=== PATIENT | male | born 1945 | race Caucasian/White ===

== ENCOUNTER 2017-10-01 09:00 | Outpatient (RCR) | payer OTHER, SELFPAY ==
--- NOTE | 2017-09-04 08:49 | HP.PTEVAL_ITS ---
Patient's Visit Information ADRIANA GAVIN is a 72 year old M referred to Physical Therapy by Out of Town Doctor with a diagnosis of Left Shoulder Pain. Date of Evaluation: 09/04/17 Physical Therapist: Ashwini Jean-Baptiste - Visit Plan Frequency: 2x /Week Duration: 4 Weeks Plan: Focus on UE and scap s/s - Subjective Subjective: Left shoulder pain about a year- insidious onset- started getting sore and then he noticed the pain on the top of the joint towards the back and the arm started to get stiff. Had surgery on his had 15-20 years ago so the hand doesn't work as well as the right. Patient is right hand dominate. Does not radiate. Agg: moving it overhead, reaching behind his back Eases: Tylenol. Worst: 8/10 Best: 0/10 No increase in LESTER, blurred vision, dizziness. Does have neck pain- very severe sometimes. No x-rays or MRI of the shoulder. Sleep: not disturbed- lays on his right side and puts a pillow under his arm. 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 PMHx: Type 1 DM , neuropathy, appendix, gall bladder surgery, right hip pin, broken right leg, HTN. Meds: lantus, novolog, crestor, fosinopril, loratadine, hydrchlorothiazide , gabapentin, ferrous sulfate. - Objective Posture: FH, RS, Increased kyphosis- guarding of the left UE. Palpation: tender to touch along upper trap to the tip of the acromion. AROM: Flexion: 105 degrees Abd: 90 degrees, IR: leteral edge of the pocket, ER: 30 degrees Elbow flexion: 120 degrees. AAROM: flexion: 170 degrees, Abd: 160 degrees. Strength: Shoulder: neutral- 4+/5 with discomfort. within available range flexion: 4-/5, abduction: 4-/5. Empty can: positive, Impingment: positive - Goals Goal 1:: Patient will be I with HEP and progression Goal Time Frame: 4-6 Weeks Goal 2:: Patient will demo full AROM of the shoulder to ease ADL's. Goal Time Frame: 4-6 Weeks Goal 3:: Patient will maintain proper posture t/o tx session to demo increased scap s/s Goal Time Frame: 4-6 Weeks Goal 4:: Patient will report 2/10 pain for 1 week with all ADL's Goal Time Frame: 4-6 Weeks - Rehabilitation Potential Physical Therapy Diagnosis: Patient presents with hypmobility- he has decreased ROM, strength and muscular endurance leading to decreased participation in ADL' s and poor posture Rehabilitation Potential: Fair - Anticipated Interventions Patient/Client Instruction: Educate patient on: Benefits of Fitness Program For the Purpose of:: To improve performance and independence with ADL's Therapeutic Exercise to Include: Strength training, Endurance training, Body mechanics, Postural training, Passive ROM, Active ROM, Scapular Strength/ Stabilization For the Purpose of:: To improve performance and independence with ADL's TENS: Yes Cryotherapy (ice pack, ice massage): Yes Thermo therapy (hot pack): Yes Ultrasound (thermal/non thermal): Yes For the Purpose of:: To decrease pain Thank you for the opportunity to evaluate your patient. For Medicare and Medicare HMO plans, please review the plan of care and approve it. It will need to be FAXED BACK to us at [phone] for Medicare purposes. Please let me know if there are questions or concerns regarding this plan of care. Physician Signature: Date:
--- NOTE | 2017-09-07 13:49 | HP.PTEVAL2_ITS ---
Patient's Visit Information ADRIANA GAVIN is a 72 year old M referred to Physical Therapy by CASPER WALLACE with a diagnosis of SPINAL STENOSIS. Date of Evaluation: 09/07/17 Physical Therapist: Madeline Honeycutt - Visit Plan Frequency: 2-3x /Week Duration: 4-6 Weeks Plan: AQUATIC THERAPY. POSTURE CORRECTION/STRENGTHENING, INSTRUCTION IN APPROPRIATE BODY MECHANICS AND ACTIVITY MODIFICATIONS. DLS STARTING WITH A NEUTRAL SPINE PROGRESSING ROM TOLERATED. ANITA LE ROM, STRETCHING AND STRENGTHENING. HEP INSTRUCTION. - Subjective Subjective: Diagnosis: REFERRED TO PT FOR AQUATIC THERAPY WITH A DIAGNOSIS OF SPINAL STENOSIS. ALREADY STARTED PT WITH KRANTHI RICKS DPT HERE AT [facility] FOR HIS SHOULDER. 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 Disability: YES - 90% DISABILITY FOR NEUROPATHY, EYE PROBLEMS, TYPE I DIABETES. Present symptoms: LOW BACK PAIN. ANITA LEG AND FOOT NUMBESS WHICH PATIENT RELATES TO NEUROPATHY. NORMAL THIGH SENSATION. Present since: CHRONIC. Pain Scale: WORST 9/10, LEAST 0/10. Currently: 0/10. Commenced as a result of: NO APPARENT REASON. Symptoms at onset: LOW BACK. Worse: WALKING, STANDING - ESPECIALLY IF THERE IS NOTHING TO HOLD ON TO, MOVING HEAVY THINGS, BENDING OVER. THE DAY PROGRESS'S. Better: SITTING, LYING DOWN. MORNING. Disturbed sleep: NO. Previous history/Previous treatment: NO BACK SURGERY, NO SILVIA'S, NO PT, NO CHIRO. SELF TREATMENT ONLY. Coughing/sneezing/ straining: NO. Gait: INDEP GAIT WITHOUT AD BUT DOES SOMETIMES USE A CANE ESPECIALLY IF GOING TO BE ON UNEVEN SURFACES. WB'ING IS TIME AND DISTANCE LIMITED. NO SERIOUS OR RECENT FALLS. HOLDS ON WITH TWO HANDS UP AND DOWN STEPS. PATIENT REPORTS HE CATCHES HIS FEET ON THE FLOOR SOMETIMES AND TRIPS BUT USUALLY DOESN'T FALL. Accidents: NO. Unexplained weight loss: NO. Imaging: RECENT LUMBAR X-RAYS AT [facility] - SPINAL STENOSIS. PMH: RIGHT HIP ORIF 1979, RIGHT LEG ORIF, RUPTURED APPENDIX WITH COMPLICATIONS 2011, GALLBLADDER REMOVAL 2014. - Objective Objective: Sitting Posture: POOR. Standing Posture: POOR. INCREASED. Lordosis: REDUCED. Lateral shift: NO. Relevant shift: N/A. Active Correction of posture: NE. Other Observations: INDEP GAIT INTO PT WITHOUT AD WITH DECREASED ENDURANCE, MILD SOB AND STOPPING AFTER APPROXIMATELY 150 TO TAKE A BREIF REST. DYNAMIC BALANCE IS FAIR MINUS. STATIC BALANCE IS ALSO FAIR MINUS. INDEP TRANSFER SIT TO STAND WITHOUT UE ASSIST BUT IT IS DIFFICULT AND TAKES MORE THAN ONE Attempt. UNABLE TO INDEP SLS ON EITHER LEG WITHOUT UE ASSIST. RIGHT LE WEAKER THAN LEFT. LESS GIRTH LEFT CALF THAN RIGHT. Motor deficit: LLE 5/5. Sensory deficit: DECREASED ANITA LEGS. FEET NT. ANITA THIGHS APPEAR INTACT TO LIGHT TOUCH. ROM deficit: TIGHT ANITA HS'S, HIP FLEXORS AND GASTROC SOLEUS COMPLEX'S. Dural Signs: NEGATIVE ANITA LE'S. Lumbar mvmt loss: flex - mod to jen. ext - jen. R SG - jen. L SG - mod. Core strength: POOR. Palpation: NO ACUTE PALPABLE TENDERNESS IN THORACIC OR LUMBAR SPINE. OTHER: PATIENT IS A HIGH FALL RISK. - Goals Goal 1:: DECREASE C/O LBP Goal Time Frame: 4-6 Weeks Goal 2:: INDEP AND SAFE GAIT ON ALL SURFACES WITH LEAST ASSISTIVE DEVICE. Goal Time Frame: 4-6 Weeks Goal 3:: IMPROVE BENDING, STANDING, WALKING AND ADL FUNCTION Goal Time Frame: 4-6 Weeks Goal 4:: INSTRUCT IN PROPHYLAXIS/INDEP WITH WATER EX PROGRAM. Goal Time Frame: 4-6 Weeks - Rehabilitation Potential Rehabilitation Potential: Fair - Anticipated Interventions Patient/Client Instruction: Educate patient on: Condition, Plan of Care, Risk Factors, Benefits of Fitness Program For the Purpose of:: To improve self management Therapeutic Exercise to Include: Strength training, Endurance training, Balance training, Body mechanics, Postural training, Flexibilty training, Gait and locomotor training, In an aquatic setting, Active ROM, Dynamic Lumbar Stabilization For the Purpose of:: To decrease pain, To improve muscle performance and motor function, To improve ability of physical actions for home/community/work/leisure , To improve gait and locomotor functions, To increase flexibility/ROM Thank you for the opportunity to evaluate your patient. For Medicare and Medicare HMO plans, please review the plan of care and approve it. It will need to be FAXED BACK to us at [phone] for Medicare purposes. Please let me know if there are questions or concerns regarding this plan of care. Physician Signature: Date:
--- NOTE | 2017-10-01 13:25 | HP.PTDS(2)_ITS ---
HP - PT D/C Summary (2) It has been my pleasure to treat ADRIANA GAVIN under orders from CASPER WALLACE, for the diagnosis of SPINAL STENOSIS for a total of 9 visit(s). Discharge Date: Please see the following information for a summary of their discharge status. - Subjective Subjective: PATIENT STATES I FEEL A LOT STRONGER AND MORE SURE OF WALKING. HE ALSO STATES THAT HE WAS GOING TO SEE ME FOR HIS BACK TODAY AND KRANTHI FOR HIS SHOULDER. PATIENT REPORTS HE FEELS A LOT MORE SURE OF HIMSELF WALKING NOW. PATIENT REPORTS HE DOES STILL GET SOME LOW BACK PAIN UP TO 5 OR 6/10 AT WORST. HE STATES HE USE TO TAKE 3 OR 4 DOUBLE DOSES OF ALEVE NOW HE TAKE ONE TYLONOL NEEDED AND HE HASN'T EVEN HAD ONE OF THOSE SINCE THURSDAY. PATIENT REPORTS HE IS REALLY HAPPY WITH HOW THINGS HAVE GONE FOR HIS BACK. HE PLANS TO CONTINUE INDEP WATER EX WITH HIS [employer] MEMBERSHIP NOW. HE STATES HE COULD BARELY WALK TWO DOORS DOWN FROM HIS HOUSE WITHOUT SIGNIFICANT PAIN AND NOW HE CAN WALK TO THE END OF THE BLOCK AND BACK. - Overall Improvement % Improvement: 60 - Objective Objective/Function/Assessment: ALL PT GOALS MET. PATIENT IS INDEP WITH A POLL PROGRAM AND HAS A MEMBERSHIP HERE. UPON EXAM: INDEP GAIT INTO PT WITHOUT AD, WITH GOOD CADANCE AND WITHOUT THE NEED TO STOP OR C/O PAIN X APPROX 300 FEET. DYNAMIC BALANCE IS FAIR PLUS. STATIC BALANCE IS ALSO FAIR PLUS. INDEP TRANSFER SIT TO STAND WITHOUT UE ASSIST WITHOUT DIFFICULTY.ABLE TO INDEP SLS ON EACH LEG WITHOUT UE ASSIST X 2-3 SEC NOW. Motor deficit: ANITA LE'S WFL. Sensory deficit : DECREASED ANITA LEGS. FEET NT. ANITA THIGHS APPEAR INTACT TO LIGHT TOUCH. ROM deficit: PATIENT CONTINUES TO HAVE TIGHT ANITA HS'S, HIP FLEXORS AND GASTROC SOLEUS COMPLEX'S BUT HE HAS STRETCHES FOR THIS NOW. Dural Signs: NEGATIVE ANITA LE'S. Lumbar mvmt loss: flex - MIN TO MOD. ext - MOD TO JEANETTE. R SG - MIN TO MOD. L SG - MIN TO MOD. Core strength: POOR BUT AGAIN PATIENT HAS EX'S FOR THIS NOW AND IS IMPROVING. OTHER: PATIENT CONTINUES TO BE A FALL RISK. - Goals Patient Goals: Improve Mobility, Improve Function, Decrease Pain, Walk Normal Goal 1:: DECREASE C/O LBP Goal Progress: Goal Met Goal 2:: INDEP AND SAFE GAIT ON ALL SURFACES WITH LEAST ASSISTIVE DEVICE. Goal Progress: Goal Met Goal 3:: IMPROVE BENDING, STANDING, WALKING AND ADL FUNCTION Goal Progress: Goal Met Goal 4:: INSTRUCT IN PROPHYLAXIS/INDEP WITH WATER EX PROGRAM. Goal Progress: Goal Met - Plan Plan: D/C TO INDEP EX. PATIENT IS AGREEABLE. - D/C Information If there are questions or concerns regarding this patient's physical therapy, please feel free to call me at [phone]. Thank you for the referral of this patient. Sincerely, Madeline Honeycutt
--- NOTE | 2017-10-01 15:27 | HP.PTDCSUM ---
HP - PT D/C Summary It has been my pleasure to treat ADRIANA GAVIN under orders from CASPER WALLACE, for the diagnosis of Left Shoulder Pain for a total of 9 visit(s). Discharge Date: Please see the following information for a summary of their discharge status. - Subjective Subjective: The shoulder is better- better ROM except behind the back- Has no pain in the shoulder. N/T in the hand bilateral secondary to neuropathy. - Pain L SH Pain Intensity (Out of 10): 2 - Overall Improvement % Improvement: 85 - Objective Objective/Function: Posture: good throughout. Palpation: not tender. ROM: Flexion/abduction/extn: WNL, IR: to pocket, ER: 30 degrees. Strength: 5/5 throughout - Goals Goal 1:: Patient will be I with HEP and progression Goal Progress: Goal Met Goal 2:: Patient will demo full AROM of the shoulder to ease ADL's. Goal Progress: Goal Met Goal 3:: Patient will maintain proper posture t/o tx session to demo increased scap s/s Goal Progress: Progressing Goal 4:: Patient will report 2/10 pain for 1 week with all ADL's Goal Progress: Goal Met - Plan Plan: Discharge to I HEP - D/C Information If there are questions or concerns regarding this patient's physical therapy, please feel free to call me at [phone]. Thank you for the referral of this patient. Sincerely, Ashwini Jean-Baptiste
== END 2017-10-01 19:00 | disposition home or self-care (01) ==
LOC: PT 09:00
PROVIDERS: Family Provider Internal Medicine; PCP Internal Medicine
DX: M48.07 Spinal stenosis, lumbosacral region (principal)
CPT/HCPCS: 97110; 97113; 97161; 97164; 97530; G8978; G8979

== ENCOUNTER 2020-04-25 16:02 | Inpatient (IN) | payer OTHER, MEDICARE, SELFPAY ==
[2020-04-25] VITALS (7 sets, daily range): BP systolic 125–168; BP diastolic 68–76; PULSE 80–89; RESP 16–24; TEMP 36.6–37.2; O2SAT 92–97; BMI 35.2; BMI 34.1
--- NOTE | 2020-04-25 16:32 | EKG12_ITS ---
Test Reason : Blood Pressure : / mmHG Vent. Rate : 082 BPM Atrial Rate : 082 BPM P-R Int : 182 ms QRS Dur : 110 ms QT Int : 360 ms P-R-T Axes : 048 -56 042 degrees QTc Int : 420 ms Normal sinus rhythm Left axis deviation Incomplete left bundle branch block Abnormal ECG Confirmed by AISHA PITTMAN, GAGAN ([id number]), editorial cartoonist RAJIV GUZMAN ([id number]) on 04/27/2020 2:08:18 PM Referred By: JESSICA Confirmed By:RILEY LEONARD MD
--- NOTE | 2020-04-25 16:33 | ED.VISSUMM ---
- ER Visit Summary Date of Service: 04/25/20 Chief Complaint: [Shortness of breath] History of Present Illness: The patient is a 75 M [presents to the emergency department with complaint of low pulse ox today. Patient was diagnosed with COVID-19 10 days ago. Patient was seen in urgent care 2 days ago and had a chest x-ray and was told may have pneumonia. Patient on doxycycline currently. Patient complains of lack of energy and exertional dyspnea. Patient has history of diabetes, hypertension, high cholesterol, and obstructive sleep apnea.] Patient denies fever or chest pain. He does have cough with productive brown sputum. Physical Examination: [HEENT-PERRLA, EOMI. Cranial nerves II through XII grossly intact. TMs clear. Mucous membranes moist. No adenopathy. Cardiovascular-regular rate and rhythm without murmur or ectopy Lungs-good aeration bilaterally. Patient has some faint expiratory wheezes in the bases. No accessory muscle use or retractions noted. Abdomen-normoactive bowel sounds, soft, nontender, no rebound or rigidity, no peritoneal signs. Extremities-intact ?4, normal range of motion, normal pulses, atraumatic] Test Results: [EKG obtained arrival shows sinus rhythm with a ventricular rate of 82 bpm with an incomplete left bundle branch block. CBC with differential obtained showed a white of 4.6, hemoglobin 13, hematocrit 39, plates 162. Chemistries unremarkable. Troponin less than 0.015. D-dimer was elevated 0.94. CTA of the chest obtained showed no evidence of PE or dissection however he did have bilateral groundglass-like infiltrates which could be consistent with Covid 19.] Emergency Department Course and Treatment: [IV line established on arrival. Patient was placed on nasal cannula after he failed ambulating with pulse ox his O2 sat dropped into the 88% range. Patient became acutely very dyspneic and weak.] Treatment Plan: [Admit] Disposition: [Admit] Impression: [COVID-19 pneumonia Hypoxemia Dyspnea] This note was generated with [employer] dictation software. It may contain incorrect words, spelling, and punctuation that were not noted in review of the chart prior to signing ED Disposition - Plan for ED Patient: Referrals: Sue Stephenson MD [Primary Care Provider] -
[2020-04-25 17:23] LABS: Absolute Lymphocyte Count 0.85 X10^3/uL (0.83-4.51); Absolute Neutrophil Count 3.2 X10^3/uL (2.0-7.7); Basophil# 0.01 X10^3/uL; Basophil% 0.2 % (0-1); Eosinophil# 0.03 X10^3/uL; Eosinophils% 0.7 % (0-5); Hematocrit 39.3 % (40-54); Lymphocyte # 0.85 X10^3/ul (4.0); Lymphocyte % 18.4 % (19-41); Mean Corp Hgb Conc 33.1 g/dL (32-36); Mean Corpuscular Hgb 31.4 pg (27.0-32.0); Mean Corpuscular Volume 94.9 fL (80-94); Mean Platelet Vol. 8.5 fl (6.2-12.0); Monocyte# 0.52 X10^3/uL; Monocyte% 11.3 % (0-10); NRBC Flagged by Analyzer 0 % (0-5); Neutrophil # 3.18 X10^3/uL (2.7-7.7); Platelet Count 162 K/mm3 (150-450); RBC Distribution Width CV 13.2 % (11.6-14.6); RBC Distribution Width SD 46.2 fl (35.1-43.9); Red Blood Count 4.14 M/mm3 (4.6-6.2); White Blood Count 4.6 K/mm3 (4.4-11.0)
--- NOTE | 2020-04-25 17:30 | RAD_ITS ---
STUDY: X-RAY CHEST REASON FOR EXAM: Male, 75 years old. Positive COVID 19 test 10 days ago. Patient has no energy. Pulse ox below 80 at home. No appetite. TECHNIQUE: Single AP portable view of the chest. COMPARISON: None. FINDINGS: Telemetry wires overlie the chest. The lungs are well-expanded. There is vague groundglass densities most marked at the lung bases. There is no demonstrated pleural abnormality. Normal size heart. Normal mediastinum and philip. Normal visualized pulmonary arteries. Normal visualized aortic arch and descending thoracic aorta. Normal visualized thoracic spine. Normal visualized ribs, clavicles, and shoulders. There is no demonstrated abnormality of the visualized soft tissue structures of the upper abdomen. RAD/Chest 1 View (Portable) IMPRESSION: Question bibasilar groundglass infiltrates. Electronically Signed: Jonathan Bennett DO at 17:45 EST Tel [phone], Service support ,
[2020-04-25 17:43] LABS: Anion Gap 5 (5-15); BUN 24 mg/dL (7-18); BUN/Creat Ratio 20.5 RATIO (10-20); Calcium,Total 8.3 mg/dL (8.5-10.1); Chloride 101 mmol/L (98-107); Creatinine, Serum 1.17 mg/dL (0.70-1.30); EST Glomerular Filtration Rate 65 mL/min (>60); Est Glom Filt Rate - Afr Amer 78 mL/min (>60); Estimated Creatinine Clearance 63.43 ml/min; Glucose 72 mg/dL (74-106); Potassium 4.5 mmol/L (3.5-5.1); Sodium Level 134 mmol/L (136-145)
[2020-04-25 17:48] LABS: D-Dimer Quantitative (DVT/PE) 0.94 FEU/ug/m (0.27-0.49)
--- NOTE | 2020-04-25 18:01 | CT_ITS ---
STUDY: CTA CHEST REASON FOR EXAM: Male, 75 years old. Shortness of breath. Elevated d-dimer. Possible colon cancer 10 days ago. History of diabetes, basal cell cancer. Prior cholecystectomy. RADIATION DOSAGE (If Supplied By Facility): CTDIvol = ( 17.42 ) mGy, DLP = ( 565.97 ) mGycm TECHNIQUE: The examination was performed with the intravenous administration of IV 100mL Isovue-370. Post-processing of the angiographic images was performed, with multiplanar reformation and 3D reconstruction. Individualized dose optimization techniques were used for this CT. COMPARISON: Chest, 04/25/2020. FINDINGS: Normal enhancement of the main pulmonary artery and right and left pulmonary arteries. Normal enhancement of the bilateral peripheral pulmonary arteries. There is no demonstrated pulmonary embolism. Normal thoracic aorta and visualized great vessels. There is no demonstrated aortic dissection. Normal heart and pericardium. Nonspecific subcentimeter mediastinal lymphadenopathy. Normal hilar regions. Normal visualized trachea and bronchi. The lungs are well expanded. There are diffuse groundglass infiltrates throughout both lungs this is predominantly peripheral in location. There is no focal consolidation or mass. Normal pleura. Normal chest wall structures. There are degenerative changes of thoracic spine. Normal visualized upper abdomen. CT/CTA Chest W/WO Contrast IMPRESSION: 1. No evidence of pulmonary embolus. 2. No aortic dissection or aneurysm. 3. Diffuse groundglass pulmonary infiltrates suggestive for but not diagnostic of COVID 19 pneumonia. Electronically Signed: Jonathan Bennett DO at 18:42 EST Tel [phone], Service support ,
--- NOTE | 2020-04-25 19:51 | ED.RN ---
PT STATES BLOOD GLUCOSE IS 84, REQUESTED APPLESAUCE, DECLINES ANY OTHER FOOD OR BEVERAGES.
--- NOTE | 2020-04-25 20:43 | HP.PCM_ITS ---
Problem List (1) Shortness of breath Status: Acute (2) Generalized weakness Status: Acute History of Present Illness Date of Admission: 04/25/20 Chief Complaint: Shortness of breath, generalized weakness The patient is a 75 year old M was seen in the emergency room at [facility] with a chief complaint of generalized weakness and shortness of breath. Patient was diagnosed with COVID-19 on April 16, 2020, he was placed on doxycycline 100 mg twice daily at that time and given a proair inhaler to use. Evaluation of the patient in the emergency room showed him to be hypoxic when ambulating on room air, at rest, the patient's pulse ox on room air was 93. Patient has multiple medical problems including type 2 diabetes, diabetic neuropathy, obstructive sleep apnea, hypertension, and hyperlipidemia. CTA of the chest today showed bilateral infiltrates suggestive of COVID-19 infection but no evidence of pulmonary emboli. Labs obtained were remarkable for a D-dimer 0.94, a BUN of 24, and a sodium of 134. Patient will be admitted to [facility] to for COVID-19 pneumonia, he will be treated with dexamethasone, remdesivir, and he will be seen in consultation by infectious diseases. Past Medical History Past Medical History (Chronic Problems): Chronic Problems HTN (hypertension) (Chronic) HLD (hyperlipidemia) (Chronic) DM (diabetes mellitus), type 1 (Chronic) X 46 years Abnormal LFTs (Chronic) since we do not have baseline labs there may also be a component of acute liver abnormality Enlarged prostate (Chronic) Restless leg syndrome (Chronic) BERTO (obstructive sleep apnea) (Chronic) Diabetic neuropathy (Chronic) Allergies acetaminophen [From Percocet] Adverse Reaction (Verified 04/25/20 16:06) Other atorvastatin calcium [From Lipitor] Adverse Reaction (Verified 04/25/20 16:06) Other Elevates pt liver enzymes oxycodone HCl [From Percocet] Adverse Reaction (Verified 04/25/20 16:06) Other simvastatin [From Zocor] Adverse Reaction (Verified 04/25/20 16:06) Other Home Medications: Ambulatory Orders Medication Instructions Recorded Ascorbic Acid [Vitamin C] 250 mg PO BID 10/24/14 Aspirin [Aspirin, Baby] 81 mg PO DAILY 10/24/14 Cyanocobalamin [Vitamin B12] 1,000 mcg PO QHS 10/24/14 Folic Acid 1 mg PO DAILY 10/24/14 Fosinopril Sodium 20 mg PO BID 10/24/14 Hydrochlorothiazide [Hctz] 15 mg PO DAILY 10/24/14 Pyridoxine HCl [Vitamin B-6] 100 mg PO QHS 10/24/14 Rosuvastatin Calcium [Crestor] 20 mg PO QHS 10/24/14 Vits A,C,E/Lutein/Minerals 1 each PO DAILY 10/24/14 [Healthy Eyes Caplet] Zinc 50 mg PO DAILY 10/24/14 Calcium Carbonate/Vitamin D3 1 ea PO BID 04/25/20 [Calcium 500+D Tablet Chew] Gabapentin [Neurontin] 600 mg PO BIDCM 04/25/20 Insulin Regular, Human [Humulin R 75 unit SQ BID 04/25/20 U-500 Kwikpen] Loratadine [Claritin] 10 mg PO DAILY PRN PRN 04/25/20 Surgical History: appendectomy, cholecystectomy, total hip arthroplasty, - - plates in both distal LE's to repair fractures sustained in an accident Psychiatric History: No pertinent psych hx Lives: Spouse/ Significant Other Smoking Status: Former smoker Tobacco Use: Pipe Alcohol: Rare Drugs: None - *Family History Maternal History Items: Cancer - His mother of ovarian cancer Paternal History Items: - - His father was poorly controlled diabetic who of a blood clot following amputation of his leg for severe peripheral vascular disease with gangrene. Sibling History Items: - - He has one brother who is likely secondary to a myocardial infarction after valve replacement and he has a 2nd brother who is alive and had a liver transplant. At the time of the transplant he was discovered that he had hepatic carcinoma. Review of Systems Constitutional: Reports: Malaise, Weakness, Fatigue. Denies: Anorexia, Chills, Fever, Night Sweats, Weight Change Eyes: Denies: Cataracts, Conjunctivae Inflammation, Double vision, Drainage HEENT: Denies: Difficulty Swallowing, Dysphasia, Ear Pain, Eye Pain, Hearing Changes, Nasal bleeding, Nasal Congestion, Post Nasal Drip Cardiovascular: Denies: Chest Pain, Claudication, Chest Pressure, Chest Tightness, Edema, Palpitations Respiratory: Reports: Cough, Shortness of Breath, Shortness of breath at rest, Shortness of breath upon exertion, Sputum production - Brown sputum production. Denies: Hemoptysis Gastrointestinal: Denies: Abdominal Pain, Constipation, Diarrhea, Hematemesis, Hematochezia, Nausea, Melena, Vomiting Genitourinary: Denies: Dysuria, Frequency, Hematuria, Hesitancy, Nocturia, Retention, Urgency Musculoskeletal: Denies: Back Pain, Foot Pain, Hand Pain, Joint Pain, Joint stiffness, Joint swelling, Joint Tenderness, Leg Pain Skin: Denies: Dryness, Pruritis, Rash Neurological: Denies: Blurred vision, Double vision, Slurred speech, Difficulty swallowing, Focal weakness, Headaches, Incoordination, Numbness, Tingling Psychiatric: Denies: Anxiety, Depression, Homicidal Ideations, Suicidal Ideations Endocrine: Denies: Change in Body Habitus, Heat/ Cold Intolerance, Polydipsia, Polyuria Hematologic/ Lymphatic: Denies: Adenopathy, Anemia, Easy Bruising, Easy Bleeding, Petechiae, Purpura VTE Information - Inpt Only VTE Present on Admission: No VTE Mechan Device Prophylaxis: None VTE Pharm Prophylaxis ordered?: Yes Patient Problems: Active and Suspected Problems Shortness of breath (Acute) Generalized weakness (Acute) - Physical Exam Vitals/I&O's: Vital Signs Temp Pulse Resp BP Pulse Ox 98.7 F 89 19 H 125/69 H 95 04/25/20 19:49 04/25/20 19:49 04/25/20 19:49 04/25/20 19:49 04/25/20 19:49 Oxygen Flow Rate (L/min) 2 Oxygen Delivery Method Nasal Cannula Weight: 124.284 kg Body Mass Index (BMI) 35.2 Finger Stick Blood Glucose 98 General: Alert, Oriented x3, Cooperative, No apparent distress, Well developed, Well nourished HEENT: Atraumatic, PERRLA, EOMI, Normocephalic Oral: Moist Mucosa Neck: Supple, No JVD, Negative Carotid Bruits, Trachea Midline, Thyroid Normal Size and Texture Lungs: Normal air movement, No wheeze, No rales, Rhonchi - Scattered expiratory rhonchi bilaterally Cardiovascular: Regular rate, Regular Rhythm, Normal S1, Normal S2, No murmurs, PMI Normal, No rub noted, No Gallop Abdomen: Bowel Sounds Present, Soft, Non Tender, Non-Distended, No hernias noted Extremities: No clubbing, No cyanosis, No edema, Capillary Refill Less than 3 Seconds Skin: No rashes, No breakdown Musculoskeletal: No Tenderness to Palpation of Joints or Extremities Neurological: Cranial nerves II-XII grossly intact, Neuro grossly intact, Sensory exam intact to light touch and pain, Coordination normal Psych/Mental Status: Normal Affect, Appropriate, Alert and oriented to time, place, person, mood and affect Laboratory Results 04/25/20 16:58: WBC 4.6, RBC 4.14 L, Hgb 13.0, Hct 39.3 L, MCV 94.9 H, MCH 31.4, MCHC 33.1, RDW Std Deviation 46.2 H, RDW Coeff of Katharine 13.2, Plt Count 162, MPV 8.5, Immature Gran % (Auto) 0.400, Neut % (Auto) 69.0, Lymph % (Auto) 18.4 L, [place] % (Auto) 11.3 H, Eos % (Auto) 0.7, Baso % (Auto) 0.2, Absolute Neuts (auto) 3.2, Absolute Lymphs (auto) 0.85, Nucleated RBC % 0 04/25/20 16:58: D-Dimer Quant (PE/DVT) 0.94 H* 04/25/20 16:58: Sodium 134 L, Potassium 4.5, Chloride 101, Carbon Dioxide 28.0, Anion Gap 5, BUN 24 H, Creatinine 1.17, Estim Creat Clear Calc 63.43, Est GFR (MDRD) Af Amer 78, Est GFR (MDRD) Non-Af 65, BUN/Creatinine Ratio 20.5 H, Glucose 72 L, Calcium 8.3 L, Troponin I < 0.015 Assessment/Plan All Active Problems Shortness of breath (Acute) Generalized weakness (Acute) Nausea and vomiting (Resolved) Elevated serum creatinine (Resolved) Choledocholithiasis (Resolved) Hyperbilirubinemia (Resolved) Transaminitis (Resolved) #1 COVID-19 pneumonia-patient will be admitted to [facility], he will be placed on remdesivir and dexamethasone, he will be seen in consultation by infectious diseases. #2 hypoxia secondary to #1-pulse ox will be monitored, oxygen will be adjusted as needed #3 type 2 diabetes-patient is on U500 at home, he states that he has not been taking his full dose because he is afraid it would drive his sugar down to low, I have decided to place him on Lantus insulin, also he will have sliding scale insulin with Humalog, his blood sugars will probably elevate due to use of steroids. #4 essential hypertension-patient will remain on home meds #5 diabetic neuropathy-patient is on gabapentin #6 obstructive sleep apnea-patient will need CPAP while sleeping Inpatient E&M: 77820 Init Hosp L3
[2020-04-25 21:31] LABS: AST(SGOT) 69 U/L (15-37); Alanine Aminotransfer ALT/SGPT 66 U/L (16-61); Albumin, Serum 3.3 g/dL (3.2-5.0); Alkaline Phosphatase 110 U/L (45-117); Globulin 3.3 g/dL (2.2-4.2); Protein, Total 6.6 g/dL (6.4-8.2)
[2020-04-25] MEDS: Lisinopril 20 MG Tablet PO (23:10)
[2020-04-25] MEDS: Enoxaparin 40 MG/0.4 ML Syringe SC (23:10)
[2020-04-25] MEDS: dexAMETHasone 4 MG Tablet 6 MG PO (23:10)
[2020-04-26] VITALS (9 sets, daily range): BP systolic 109–155; BP diastolic 51–83; PULSE 70–76; RESP 17–20; TEMP 36.2–36.9; O2SAT 94–96
[2020-04-26] MEDS: 0.9% Saline Lock 10 ML Syringe IV ×2 (00:15→06:53)
[2020-04-26] MEDS: Acetaminophen 325 MG Tablet 650 MG PO (00:16)
[2020-04-26 01:00] LABS: Bedside Glucose 135 mg/dL (70-110)
[2020-04-26 03:46] LABS: Bedside Glucose 282 mg/dL (70-110)
[2020-04-26] MEDS: Insulin Lispro 100 UNIT/ML INSULN.PEN SC ×2 (06:52→16:46)
--- NOTE | 2020-04-26 07:08 | PCM.PN.HOSP ---
Patient Problems: Active and Suspected Problems Shortness of breath (Acute) Generalized weakness (Acute) Reason for Visit: Follow-up for COVID-19 bilateral pneumonia with hypoxia Objective: The patient was admitted with generalized weakness and shortness of breath found hypoxic when ambulating on room air. No fever or chills. Blood pressure systolic in 150s. Mild tachypnea respiratory 20 to 24/min Physical exam General: Alert, Oriented x3, Cooperative HEENT: Atraumatic, PERRLA, EOMI, Normocephalic. Very hard of hearing Oral: No Gingival or Mucosal Lesions/ Ulcerations Neck: Supple, No JVD, Negative Carotid Bruits Lungs: Air entry diminished in bilateral lung bases. No crepitation/rhonchi. No hypoxia Cardiovascular: Regular rate, Regular Rhythm, Normal S1, Normal S2, No murmurs Abdomen: Bowel Sounds Present, Soft, Non Tender, Non-Distended : No renal angle tenderness. No suprapubic tenderness. Extremities: No edema, Capillary Refill Less than 3 Seconds Skin: Rash/erythema over left inguinal crease. No surrounding vesicular lesions suggestive of Brianna. Musculoskeletal: No Tenderness to Palpation of Joints or Extremities Neurological: Cranial nerves II-XII grossly intact, Deep Tendon Reflexes 2+/4 and Symmetrical, Neuro grossly intact Psych/Mental Status: Normal Affect, Appropriate. Vitals/I&O's: Vital Signs Temp Pulse Resp BP Pulse Ox 98.0 F 76 20 H 155/82 H 96 04/26/20 03:32 04/26/20 03:32 04/26/20 03:32 04/26/20 03:32 04/26/20 03:32 Oxygen Flow Rate (L/min) 2 Oxygen Delivery Method CPAP Weight: 265 lb 14.04 oz Body Mass Index (BMI) 34.1 Finger Stick Blood Glucose 98 Intake and Output for Last 24 Hours 04/24/20 04/25/20 04/26/20 23:59 23:59 23:59 Intake Total 780 / 780 Balance 780 / 780 Laboratory Results 04/25/20 16:58: WBC 4.6, RBC 4.14 L, Hgb 13.0, Hct 39.3 L, MCV 94.9 H, MCH 31.4, MCHC 33.1, RDW Std Deviation 46.2 H, RDW Coeff of Katharine 13.2, Plt Count 162, MPV 8.5, Immature Gran % (Auto) 0.400, Neut % (Auto) 69.0, Lymph % (Auto) 18.4 L, [place] % (Auto) 11.3 H, Eos % (Auto) 0.7, Baso % (Auto) 0.2, Absolute Neuts (auto) 3.2, Absolute Lymphs (auto) 0.85, Nucleated RBC % 0 04/25/20 16:58: D-Dimer Quant (PE/DVT) 0.94 H* 04/25/20 16:58: Sodium 134 L, Potassium 4.5, Chloride 101, Carbon Dioxide 28.0, Anion Gap 5, BUN 24 H, Creatinine 1.17, Estim Creat Clear Calc 63.43, Est GFR (MDRD) Af Amer 78, Est GFR (MDRD) Non-Af 65, BUN/Creatinine Ratio 20.5 H, Glucose 72 L, Calcium 8.3 L, Troponin I < 0.015 04/25/20 16:58: Total Bilirubin 0.40, Direct Bilirubin 0.20, AST 69 H, ALT 66 H, Alkaline Phosphatase 110, Total Protein 6.6, Albumin 3.3, Globulin 3.3 04/25/20 23:04: POC Glucose 135 H 04/26/20 03:29: POC Glucose 282 H Current Medications Acetaminophen (Acetaminophen 325 Mg Tablet) 650 mg PO Q6H PRN PRN PRN Reason: Pain Score 1-10/Temp > 100.7 F Last Admin: 04/26/20 00:16 Dose: 650 mg Documented by: Aspirin (Aspirin 81 Mg Tab.Chew) 81 mg PO DAILY [facility] Dexamethasone (Dexamethasone 4 Mg Tablet) 6 mg PO DAILY [facility] Enoxaparin Sodium (Enoxaparin 40 Mg/0.4 Ml Syringe) 40 mg SC BID [facility] Last Admin: 04/25/20 23:10 Dose: 40 mg Documented by: Gabapentin (Gabapentin 600 Mg Tablet) 600 mg PO BID [facility] Guaifenesin (Guaifenesin Dm 10 Ml Udc) 10 ml PO Q6H PRN PRN PRN Reason: COUGH Hydrochlorothiazide (Hydrochlorothiazide 12.5mg) 12.5 mg PO DAILY [facility] Remdesivir 100 mg/ Sodium (Chloride) 250 mls @ 125 mls/hr IV DAILY@2200 [facility] Stop: 04/29/20 23:59 Sodium Chloride () 250 mls @ 15 mls/hr IV .[id number] PRN PRN Reason: Saline Flush Last Infusion: 04/26/20 02:16 Dose: 15 mls/hr Documented by: Sodium Chloride () 250 mls @ 15 mls/hr IV .[id number] PRN PRN Reason: Additional IVPB Infusion Insulin Glargine (Insulin Glargine 100 Units/Ml Pen) 40 units SC BID [facility] Last Admin: 04/25/20 23:22 Dose: 20 u Documented by: Insulin Human Lispro (Insulin Lispro 100 Unit/Ml Insuln.Pen) 0 unit SC ACHS ANH; Protocol Last Admin: 04/26/20 06:52 Dose: 10 units Documented by: Lisinopril (Lisinopril 20 Mg Tablet) 20 mg PO BID [facility] Last Admin: 04/25/20 23:10 Dose: 20 mg Documented by: Rosuvastatin Calcium (Rosuvastatin 20 Mg Tablet) 20 mg PO QHS [facility] Sodium Chloride (0.9% Saline Lock 10 Ml Syringe) 10 - 40 ml IV UD PRN PRN Reason: SALINE FLUSH Last Admin: 04/26/20 06:53 Dose: 20 ml Documented by: STROKE Vital Signs/Narrative: Vital Signs Temp Pulse Resp BP Pulse Ox 04/26/20 03:32 98.0 F 76 20 H 155/82 H 96 Medical Necessity - Tobacco Use Smoking Status: Former smoker Tobacco Use: Pipe Assessment/Plan All Active Problems Shortness of breath (Acute) Generalized weakness (Acute) Nausea and vomiting (Resolved) Elevated serum creatinine (Resolved) Choledocholithiasis (Resolved) Hyperbilirubinemia (Resolved) Transaminitis (Resolved) This 75-year-old woman was admitted with generalized weakness, shortness of breath and hypoxia on ambulation and CT chest finding of bilateral infiltrates suggestive of COVID-19 infection but no evidence of PE. Patient diagnosed COVID-19 on number 23rd and was started on doxy 100 mg twice daily at that time. #1 Bilateral COVID-19 pneumonia with hypoxia, acute respiratory insufficiency: -patient is being admitted to [facility] 2, on remdesivir and dexamethasone, oxygen to keep pulse ox more than 92%. 04/26: CT chest reviewed and shows diffuse groundglass pulmonary infiltrate in the periphery and base Suggestive of COVID-19 pneumonia. #2 type 2 [id number] before meals and at bedtime. Patient on Lantus and sliding scale insulin. Blood sugars are controlled 135, 282. 12/: Glucose is elevated very high 549 and Humalog 18 units 1 dose given related to steroid effect. Lantus insulin dose increased to 50 mg twice daily and scheduled Humalog 10 subcutaneous 3 times daily with meal #4 essential hypertension-on home meds with holding parameters. #5 diabetic neuropathy-patient is on gabapentin #6 obstructive sleep apnea-patient will need CPAP while sleeping Clinical Impression(s) from Imaging Studies Chest X-Ray 04/25/20 17:30 IMPRESSION: Question bibasilar groundglass infiltrates. Chest CTA 04/25/20 18:01 IMPRESSION: 1. No evidence of pulmonary embolus. 2. No aortic dissection or aneurysm. 3. Diffuse groundglass pulmonary infiltrates suggestive for but not diagnostic of COVID 19 pneumonia. Laboratory Results 04/25/20 16:58: WBC 4.6, RBC 4.14 L, Hgb 13.0, Hct 39.3 L, MCV 94.9 H, MCH 31.4, MCHC 33.1, RDW Std Deviation 46.2 H, RDW Coeff of Katharine 13.2, Plt Count 162, MPV 8.5, Immature Gran % (Auto) 0.400, Neut % (Auto) 69.0, Lymph % (Auto) 18.4 L, [place] % (Auto) 11.3 H, Eos % (Auto) 0.7, Baso % (Auto) 0.2, Absolute Neuts (auto) 3.2, Absolute Lymphs (auto) 0.85, Nucleated RBC % 0 04/25/20 16:58: D-Dimer Quant (PE/DVT) 0.94 H* 04/25/20 16:58: Sodium 134 L, Potassium 4.5, Chloride 101, Carbon Dioxide 28.0, Anion Gap 5, BUN 24 H, Creatinine 1.17, Estim Creat Clear Calc 63.43, Est GFR (MDRD) Af Amer 78, Est GFR (MDRD) Non-Af 65, BUN/Creatinine Ratio 20.5 H, Glucose 72 L, Calcium 8.3 L, Troponin I < 0.015 04/25/20 16:58: Total Bilirubin 0.40, Direct Bilirubin 0.20, AST 69 H, ALT 66 H, Alkaline Phosphatase 110, Total Protein 6.6, Albumin 3.3, Globulin 3.3 04/25/20 23:04: POC Glucose 135 H 04/26/20 03:29: POC Glucose 282 H 04/26/20 06:49: POC Glucose 398 H Inpatient E&M: 05366 Subs Hosp L2
[2020-04-26 07:10] LABS: Bedside Glucose 398 mg/dL (70-110)
[2020-04-26] MEDS: Enoxaparin 40 MG/0.4 ML Syringe SC ×2 (08:12→21:19)
[2020-04-26] MEDS: dexAMETHasone 4 MG Tablet 6 MG PO (08:12)
[2020-04-26] MEDS: Gabapentin 600 MG Tablet PO ×2 (08:13→21:20)
[2020-04-26] MEDS: Lisinopril 20 MG Tablet PO ×2 (08:13→21:19)
[2020-04-26] MEDS: Aspirin 81 MG TAB.CHEW PO (08:13)
[2020-04-26] MEDS: hydroCHLOROthiazide 12.5mg 12.5 MG PO (08:13)
[2020-04-26 09:03] LABS: Absolute Lymphocyte Count 0.72 X10^3/uL (0.83-4.51); Absolute Neutrophil Count 3.5 X10^3/uL (2.0-7.7); Hematocrit 39.9 % (40-54); Hemoglobin 12.7 g/dL (13.0-16.5); Lymphocyte # 0.72 X10^3/ul (4.0); Lymphocyte % 16.1 % (19-41); Mean Corp Hgb Conc 31.8 g/dL (32-36); Mean Corpuscular Hgb 30.6 pg (27.0-32.0); Mean Corpuscular Volume 96.1 fL (80-94); Mean Platelet Vol. 8.3 fl (6.2-12.0); Monocyte# 0.19 X10^3/uL; Monocyte% 4.3 % (0-10); NRBC Flagged by Analyzer 0 % (0-5); Neutrophil # 3.53 X10^3/uL (2.7-7.7); Neutrophil % 79.2 % (47-70); Platelet Count 178 K/mm3 (150-450); RBC Distribution Width CV 13.1 % (11.6-14.6); RBC Distribution Width SD 46.9 fl (35.1-43.9); Red Blood Count 4.15 M/mm3 (4.6-6.2); White Blood Count 4.5 K/mm3 (4.4-11.0)
[2020-04-26 09:28] LABS: ALB/GLOB Ratio 0.7 RATIO (0.9-2.4); AST(SGOT) 67 U/L (15-37); Alanine Aminotransfer ALT/SGPT 65 U/L (16-61); Alkaline Phosphatase 111 U/L (45-117); Anion Gap 9 (5-15); BUN 32 mg/dL (7-18); BUN/Creat Ratio 19.8 RATIO (10-20); Chloride 99 mmol/L (98-107); Creatinine, Serum 1.62 mg/dL (0.70-1.30); EST Glomerular Filtration Rate 44 mL/min (>60); Est Glom Filt Rate - Afr Amer 54 mL/min (>60); Estimated Creatinine Clearance 45.81 ml/min; Globulin 4.3 g/dL (2.2-4.2); Glucose 368 mg/dL (74-106); Potassium 4.7 mmol/L (3.5-5.1); Protein, Total 7.3 g/dL (6.4-8.2); Sodium Level 132 mmol/L (136-145)
--- NOTE | 2020-04-26 10:44 | CASEMGMT ---
RN CM Assessment Note Introduced role of CM to patient's . Attempted to call patient x 2 and he is not answering his phone. Per , the patient is independent at home. Does not use ambulatory DME except occasionally cane. - states patient will not wish to transfer to the [facility]. Will ask nurse to ask patient if he would wish to transfer, or stay @ [facility] under his [facility] benefits. COVID Testing: @ [facility] in [place], [place] Presentation: shortness of breath, generalized weakness Diagnosis: COVID 19 PCP: Dr. Stephenson Specialists: Endocrinology @ [facility] Insurance: [facility]/ [facility] Preferred Pharmacy: [facility] Prescription Benefit: yes LNOK: Sidney Larsen Living Arrangements: Lives with . states no care needs, pt is independent with ADL's and IADL's. Tranportation: drives DME: cane, cpap. No home oxygen. If needed, [facility]. was updated that this would not be possible on the weekend, and oxygen would need set up [facility]. would like patient notified prior to oxygen set up to review list of providers with him. [facility]Network providers for [facility]: Simone Santiago, [facility] Patient DC Goals: Home DC Plan: Home. Pt is currently not on home oxygen. CM available for discharge planning coordination. Contact CM for any concerns/needs that may arise. Yolanda RIVERA RN ACM
[2020-04-26] MEDS: Insulin Lispro 100 UNIT/ML INSULN.PEN 10 UNIT SC (11:09)
[2020-04-26] MEDS: 0.9% Normal Saline 1,000 ML 100 ML IV ×2 (11:12→22:57)
[2020-04-26] MEDS: Insulin Lispro 100 UNIT/ML INSULN.PEN 18 UNIT SC (11:16)
[2020-04-26 11:35] LABS: Bedside Glucose > 500 mg/dL (70-110)
[2020-04-26 14:40] LABS: Bedside Glucose 470 mg/dL (70-110)
--- NOTE | 2020-04-26 15:06 | PCM.HP.ID ---
Problem List (1) COVID-19 Status: Acute Reason for Consult: covid Consulted by: Dr. Joseph History of Present Illness: The patient is a 75 year old M dx 04/17 with covid, around that time had fatigue, dyspnea, cough. Relatively mild symptoms. No fever, no change in taste or smell. also sick, doing ok at home. Came to ED, admitted on dex, remdesivir, feeling better. Full ROS Performed and neg except as noted above. - Medical History Past Medical History (Chronic Problems): Chronic Problems HTN (hypertension) (Chronic) HLD (hyperlipidemia) (Chronic) DM (diabetes mellitus), type 1 (Chronic) X 46 years Abnormal LFTs (Chronic) since we do not have baseline labs there may also be a component of acute liver abnormality Enlarged prostate (Chronic) Restless leg syndrome (Chronic) BERTO (obstructive sleep apnea) (Chronic) Diabetic neuropathy (Chronic) Allergies/Adverse Reactions: Allergies acetaminophen [From Percocet] Adverse Reaction (Verified 04/25/20 16:06) Other atorvastatin calcium [From Lipitor] Adverse Reaction (Verified 04/25/20 16:06) Other Elevates pt liver enzymes oxycodone HCl [From Percocet] Adverse Reaction (Verified 04/25/20 16:06) Other simvastatin [From Zocor] Adverse Reaction (Verified 04/25/20 16:06) Other Home Medications: Ambulatory Orders Medication Instructions Recorded Ascorbic Acid [Vitamin C] 250 mg PO BID 10/24/14 Aspirin [Aspirin, Baby] 81 mg PO DAILY 10/24/14 Cyanocobalamin [Vitamin B12] 1,000 mcg PO QHS 10/24/14 Folic Acid 1 mg PO DAILY 10/24/14 Fosinopril Sodium 20 mg PO BID 10/24/14 Hydrochlorothiazide [Hctz] 15 mg PO DAILY 10/24/14 Pyridoxine HCl [Vitamin B-6] 100 mg PO QHS 10/24/14 Rosuvastatin Calcium [Crestor] 20 mg PO QHS 10/24/14 Vits A,C,E/Lutein/Minerals 1 each PO DAILY 10/24/14 [Healthy Eyes Caplet] Zinc 50 mg PO DAILY 10/24/14 Calcium Carbonate/Vitamin D3 1 ea PO BID 04/25/20 [Calcium 500+D Tablet Chew] Gabapentin [Neurontin] 600 mg PO BIDCM 04/25/20 Insulin Regular, Human [Humulin R 75 unit SQ BID 04/25/20 U-500 Kwikpen] Loratadine [Claritin] 10 mg PO DAILY PRN PRN 04/25/20 - Social History SMOKING STATUS:: Former smoker Vital Signs Temp Pulse Resp BP Pulse Ox 97.2 F L 76 17 154/83 H 95 04/26/20 08:17 04/26/20 08:17 04/26/20 11:30 04/26/20 08:17 04/26/20 11:50 Oxygen Flow Rate (L/min) 2 Oxygen Delivery Method Room Air Weight: 120.6 kg Body Mass Index (BMI) 34.1 Finger Stick Blood Glucose 98 Laboratory Tests Past 24 Hrs 04/25/20 04/25/20 04/25/20 16:58 16:58 16:58 WBC 4.6 RBC 4.14 L Hgb 13.0 Hct 39.3 L MCV 94.9 H MCH 31.4 MCHC 33.1 RDW Std Deviation 46.2 H RDW Coeff of Katharine 13.2 Plt Count 162 MPV 8.5 Immature Gran % (Auto) 0.400 Neut % (Auto) 69.0 Lymph % (Auto) 18.4 L [place] % (Auto) 11.3 H Eos % (Auto) 0.7 Baso % (Auto) 0.2 Absolute Neuts (auto) 3.2 Absolute Lymphs (auto) 0.85 Nucleated RBC % 0 D-Dimer Quant (PE/DVT) 0.94 H* Sodium 134 L Potassium 4.5 Chloride 101 Carbon Dioxide 28.0 Anion Gap 5 BUN 24 H Creatinine 1.17 Estim Creat Clear Calc 63.43 Est GFR (MDRD) Af Amer 78 Est GFR (MDRD) Non-Af 65 BUN/Creatinine Ratio 20.5 H Glucose 72 L Calcium 8.3 L Total Bilirubin Direct Bilirubin AST ALT Alkaline Phosphatase Troponin I < 0.015 Total Protein Albumin Globulin Albumin/Globulin Ratio 04/25/20 04/26/20 04/26/20 16:58 08:45 08:45 WBC 4.5 RBC 4.15 L Hgb 12.7 L Hct 39.9 L MCV 96.1 H MCH 30.6 MCHC 31.8 L RDW Std Deviation 46.9 H RDW Coeff of Katharine 13.1 Plt Count 178 MPV 8.3 Immature Gran % (Auto) 0.400 Neut % (Auto) 79.2 H Lymph % (Auto) 16.1 L [place] % (Auto) 4.3 Eos % (Auto) 0.0 Baso % (Auto) 0.0 Absolute Neuts (auto) 3.5 Absolute Lymphs (auto) 0.72 L Nucleated RBC % 0 D-Dimer Quant (PE/DVT) Sodium 132 L Potassium 4.7 Chloride 99 Carbon Dioxide 24.0 Anion Gap 9 BUN 32 H Creatinine 1.62 H Estim Creat Clear Calc 45.81 Est GFR (MDRD) Af Amer 54 L Est GFR (MDRD) Non-Af 44 L BUN/Creatinine Ratio 19.8 Glucose 368 H Calcium 8.0 L Total Bilirubin 0.40 0.50 Direct Bilirubin 0.20 AST 69 H 67 H ALT 66 H 65 H Alkaline Phosphatase 110 111 Troponin I Total Protein 6.6 7.3 Albumin 3.3 3.0 L Globulin 3.3 4.3 H Albumin/Globulin Ratio 0.7 L - Other Studies Radiology: [] reviewed Other Studies: [] Route of nutrition/ use of supplements: [] Nutritional Intake: [] IV Site: [] Powell Catheter: [] - Physical Exam General: Alert, Oriented x3, Cooperative, No apparent distress HEENT: Atraumatic, PERRLA, EOMI Neck: Supple Lungs: Clear to auscultation, Diminished Cardiovascular: Regular rate, Regular Rhythm Abdomen: Soft, Non Tender, Non-Distended Extremities: No edema Skin: No rashes IV Site: Peripheral, without redness Musculoskeletal: No Tenderness to Palpation of Joints or Extremities Neurological: Cranial nerves II-XII grossly intact - Assessment/Plan Antibiotics: [] Assessment/Plan: [] Active and Suspected Problems Shortness of breath (Acute) Generalized weakness (Acute) covid with hypoxia - mild rise in d-dimer. Sx started around 04/17. Started on remdesivir and dex, feeling better. Ok for home with dex and 2 weeks of low dose eliquis. Will follow, thank you, d/w Dr. Joseph
[2020-04-26 16:40] LABS: Bedside Glucose 312 mg/dL (70-110)
[2020-04-26] MEDS: Insulin Lispro 100 UNIT/ML INSULN.PEN 15 UNIT SC (16:47)
[2020-04-26] MEDS: Cyanocobalamin 500 MCG Tablet 1000 MCG PO (21:19)
[2020-04-26] MEDS: Ascorbic Acid 500 MG Tablet 250 MG PO (21:19)
[2020-04-26] MEDS: Pyridoxine HCl 100 MG Tablet PO ×2 (21:19)
[2020-04-26] MEDS: Rosuvastatin 20 MG Tablet PO (21:19)
[2020-04-26 23:10] LABS: Bedside Glucose 149 mg/dL (70-110)
[2020-04-27 00:26] LABS: Bedside Glucose 144 mg/dL (70-110)
[2020-04-27 02:46] VITALS: BP 117/70; PULSE 66; RESP 18; TEMP 36.6; O2SAT 93
[2020-04-27 08:30] LABS: Hematocrit 37.1 % (40-54); Hemoglobin 12.2 g/dL (13.0-16.5); Mean Corp Hgb Conc 32.9 g/dL (32-36); Mean Corpuscular Hgb 31.4 pg (27.0-32.0); Mean Corpuscular Volume 95.4 fL (80-94); Mean Platelet Vol. 8.5 fl (6.2-12.0); Platelet Count 215 K/mm3 (150-450); RBC Distribution Width CV 13.2 % (11.6-14.6); RBC Distribution Width SD 46.1 fl (35.1-43.9); Red Blood Count 3.89 M/mm3 (4.6-6.2); White Blood Count 6.5 K/mm3 (4.4-11.0)
[2020-04-27 08:56] LABS: ALB/GLOB Ratio 0.7 RATIO (0.9-2.4); AST(SGOT) 63 U/L (15-37); Alanine Aminotransfer ALT/SGPT 68 U/L (16-61); Albumin, Serum 2.7 g/dL (3.2-5.0); Alkaline Phosphatase 91 U/L (45-117); Anion Gap 8 (5-15); BUN 43 mg/dL (7-18); BUN/Creat Ratio 33.1 RATIO (10-20); Calcium,Total 8.1 mg/dL (8.5-10.1); Chloride 103 mmol/L (98-107); EST Glomerular Filtration Rate 57 mL/min (>60); Est Glom Filt Rate - Afr Amer 69 mL/min (>60); Estimated Creatinine Clearance 57.08 ml/min; Globulin 3.9 g/dL (2.2-4.2); Glucose 161 mg/dL (74-106); Protein, Total 6.6 g/dL (6.4-8.2); Sodium Level 135 mmol/L (136-145)
[2020-04-27] MEDS: Insulin Lispro 100 UNIT/ML INSULN.PEN SC (08:59)
[2020-04-27] MEDS: Insulin Lispro 100 UNIT/ML INSULN.PEN 15 UNIT SC (08:59)
[2020-04-27] MEDS: hydroCHLOROthiazide 12.5mg 12.5 MG PO (09:03)
[2020-04-27] MEDS: Enoxaparin 40 MG/0.4 ML Syringe SC (09:03)
[2020-04-27] MEDS: Gabapentin 600 MG Tablet PO (09:04)
[2020-04-27] MEDS: Ascorbic Acid 500 MG Tablet 250 MG PO (09:04)
[2020-04-27] MEDS: dexAMETHasone 4 MG Tablet 6 MG PO (09:05)
[2020-04-27] MEDS: Lisinopril 20 MG Tablet PO (09:06)
[2020-04-27] MEDS: Aspirin 81 MG TAB.CHEW PO (09:06)
[2020-04-27] MEDS: Folic Acid 1 MG Tablet PO (09:06)
[2020-04-27 09:13] VITALS: BP 149/80; PULSE 74; RESP 16; TEMP 37.1; O2SAT 95
--- NOTE | 2020-04-27 09:32 | DCINST_ITS ---
- Discharge Diagnoses Current Active Problems: Current Active and Chronic Problems COVID-19 (Acute) Shortness of breath (Acute) Generalized weakness (Acute) You will use the following diet at home:: Calorie/Carbohydrate Controlled (specify 1200, 1400, etc) - Carb controlled diet, Cardiac Your food should be the consistency of: Regular Discharge Activity: May Not Drive - For about 2 weeks Weight Bearing Status: Weight bearing as tolerated Call your doctor if you observe: Fever of 101 or Higher, Numbness or Tingling, Change in Color, Inability to urinate, Inability to have a bowel movement, Shortness of breath, Dizziness, Fainting spells, Swelling in the ankles, Chest pain, Prolonged hiccoughing, Increased palpitations (irregular heartbeat), Calf discomfort, Uncontrolled pain Allergies/Adverse Reactions: Allergies acetaminophen [From Percocet] Adverse Reaction (Verified 04/25/20 16:06) Other atorvastatin calcium [From Lipitor] Adverse Reaction (Verified 04/25/20 16:06) Other Elevates pt liver enzymes oxycodone HCl [From Percocet] Adverse Reaction (Verified 04/25/20 16:06) Other simvastatin [From Zocor] Adverse Reaction (Verified 04/25/20 16:06) Other Medications to take at Discharge Ascorbic Acid [Vitamin C] 250 mg PO BID 10/24/14 Aspirin [Aspirin, Baby] 81 mg PO DAILY 10/24/14 Cyanocobalamin [Vitamin B12] 1,000 mcg PO QHS 10/24/14 Folic Acid 1 mg PO DAILY 10/24/14 Fosinopril Sodium 20 mg PO BID 10/24/14 Pyridoxine HCl [Vitamin B-6] 100 mg PO QHS 10/24/14 Rosuvastatin Calcium [Crestor] 20 mg PO QHS 10/24/14 Vits A,C,E/Lutein/Minerals [Healthy Eyes Caplet] 1 each PO DAILY 10/24/14 Zinc 50 mg PO DAILY 10/24/14 Calcium Carbonate/Vitamin D3 [Calcium 500+D Tablet Chew] 1 ea PO BID 04/25/20 Gabapentin [Neurontin] 600 mg PO BIDCM 04/25/20 Insulin Regular, Human [Humulin R U-500 Kwikpen] 75 unit SQ BID 04/25/20 Loratadine [Claritin] 10 mg PO DAILY PRN PRN 04/25/20 Apixaban [Eliquis] 2.5 mg PO BID #30 tab 04/27/20 Dexamethasone [Decadron] 6 mg PO DAILY #7 tab 04/27/20 Hydrochlorothiazide [Hctz] 12.5 mg PO DAILY #0 04/27/20 The following prescriptions were given: Dexamethasone [Decadron] 6 mg PO DAILY #7 tab Transmission Status: Pending to [id number] Apixaban [Eliquis] 2.5 mg PO BID #30 tab Transmission Status: Pending to [facility]/pharmacy #[id number] Primary Care Physician: Sue Stephenson MD [Primary Care Provider] - Please follow up with your Primary Care Physician in: In 2 weeks with follow-up BMP in 1 week Test Results: Test results from this visit will be discussed in further detail at your follow- up appointment, if applicable. Please Follow Up With: Sebastián Cobb MD When: As needed if any question related to Covid 19
--- NOTE | 2020-04-27 09:33 | DS.PCM_ITS ---
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 Patient diagnosed COVID-19 on number 23rd and was started on doxy 100 mg twice daily at that time. #1 Bilateral COVID-19 pneumonia with hypoxia, acute respiratory insufficiency: -patient is being admitted to [facility] [place] [place] [facility], on remdesivir and dexamethasone, oxygen to keep pulse ox more than 92%. CT chest reviewed and shows diffuse groundglass pulmonary infiltrate in the periphery and base Suggestive of COVID-19 pneumonia. Patient remained stable on room air. He has obstructive sleep apnea and uses CPAP at night. #2 type 2 [id number] before meals and at bedtime. Patient on Lantus and sliding scale insulin. Blood sugars are controlled 135, 282. Blood sugar was very high was controlled with Humalog and Lantus insulin. Patient was put on home dose of insulin regular 75 units subcutaneous twice daily along with the Lantus blood sugar was controlled. #4 essential hypertension-on home meds with holding parameters. #5 diabetic neuropathy-patient is on gabapentin #6 obstructive sleep apnea-patient will need CPAP while sleeping Discharge medication reconciliation done. Discharge follow-up instructions completed. Discharge process discussed with the patient and all questions were answered to patient's satisfaction. Patient was advised to hold HCTZ for 5 days. Discharged on Decadron to complete a total of 10 days and Eliquis 2.5 mg twice daily for 2 more weeks. Total time spent, exact 35 minutes on discharge meds reconciliation, examination, coordination of care with nurses and ancillary staff, review of imaging and blood test and discussion with the patient on follow-up instructions Clinical Impression(s) from Imaging Studies Chest X-Ray 04/25/20 17:30 IMPRESSION: Question bibasilar groundglass infiltrates. Chest CTA 04/25/20 18:01 IMPRESSION: 1. No evidence of pulmonary embolus. 2. No aortic dissection or aneurysm. 3. Diffuse groundglass pulmonary infiltrates suggestive for but not diagnostic of COVID 19 pneumonia. Patient Problems: Active and Suspected Problems COVID-19 (Acute) Shortness of breath (Acute) Generalized weakness (Acute) Objective: Patient heart rate and blood pressure controlled. Pulse ox 95% on room air. No tachypnea or hypoxia. Patient blood sugar is controlled overnight. Physical exam General: Alert, Oriented x3, Cooperative HEENT: Atraumatic, PERRLA, EOMI, Normocephalic. Very hard of hearing Oral: No Gingival or Mucosal Lesions/ Ulcerations Neck: Supple, No JVD, Negative Carotid Bruits Lungs: Air entry diminished in bilateral lung bases. No crepitation/rhonchi. No hypoxia Cardiovascular: Regular rate, Regular Rhythm, Normal S1, Normal S2, No murmurs Abdomen: Bowel Sounds Present, Soft, Non Tender, Non-Distended : No renal angle tenderness. No suprapubic tenderness. Extremities: No edema, Capillary Refill Less than 3 Seconds Skin: Erythematous lesion over left inguinal crease. No surrounding vesicular lesions suggestive of Brianna/fungal lesion. Musculoskeletal: No Tenderness to Palpation of Joints or Extremities Neurological: Cranial nerves II-XII grossly intact, Deep Tendon Reflexes 2+/4 and Symmetrical, Neuro grossly intact Psych/Mental Status: Normal Affect, Appropriate. - Physical Exam Vitals/I&O's: Vital Signs Temp Pulse Resp BP Pulse Ox 98.7 F 74 16 149/80 H 95 04/27/20 09:13 04/27/20 09:13 04/27/20 09:13 04/27/20 09:13 04/27/20 09:13 Oxygen Flow Rate (L/min) 2 Oxygen Delivery Method Room Air Weight: 265 lb 14.04 oz Body Mass Index (BMI) 34.1 Finger Stick Blood Glucose 98 Intake and Output for Last 24 Hours 04/25/20 04/26/20 04/27/20 23:59 23:59 23:59 Intake Total 3481.25 / 4081.25 1000 / 1000 Balance 3481.25 / 4081.25 1000 / 1000 Laboratory Results 04/26/20 11:07: POC Glucose > 500 H* 04/26/20 14:16: POC Glucose 470 H* 04/26/20 16:22: POC Glucose 312 H 04/26/20 21:15: POC Glucose 144 H 04/26/20 22:53: POC Glucose 149 H 04/27/20 06:52: WBC 6.5, RBC 3.89 L, Hgb 12.2 L, Hct 37.1 L, MCV 95.4 H, MCH 31.4, MCHC 32.9, RDW Std Deviation 46.1 H, RDW Coeff of Katharine 13.2, Plt Count 215, MPV 8.5 04/27/20 06:52: Sodium 135 L, Potassium 4.0, Chloride 103, Carbon Dioxide 24.0, Anion Gap 8, BUN 43 H, Creatinine 1.30, Estim Creat Clear Calc 57.08, Est GFR (MDRD) Af Amer 69, Est GFR (MDRD) Non-Af 57 L, BUN/Creatinine Ratio 33.1 H, Glucose 161 H, Calcium 8.1 L, Total Bilirubin 0.30, AST 63 H, ALT 68 H, Alkaline Phosphatase 91, Total Protein 6.6, Albumin 2.7 L, Globulin 3.9, Albumin /Globulin Ratio 0.7 L Current Medications Acetaminophen (Acetaminophen 325 Mg Tablet) 650 mg PO Q6H PRN PRN PRN Reason: Pain Score 1-10/Temp > 100.7 F Last Admin: 04/26/20 00:16 Dose: 650 mg Documented by: Ascorbic Acid (Ascorbic Acid 500 Mg Tablet) 250 mg PO BID [facility] Last Admin: 04/27/20 09:04 Dose: 250 mg Documented by: Aspirin (Aspirin 81 Mg Tab.Chew) 81 mg PO DAILY [facility] Last Admin: 04/27/20 09:06 Dose: 81 mg Documented by: Cyanocobalamin (Cyanocobalamin 500 Mcg Tablet) 1,000 mcg PO QHS [facility] Last Admin: 04/26/20 21:19 Dose: 1,000 mcg Documented by: Dexamethasone (Dexamethasone 4 Mg Tablet) 6 mg PO DAILY [facility] Stop: 05/04/20 10:01 Last Admin: 04/27/20 09:05 Dose: 6 mg Documented by: Enoxaparin Sodium (Enoxaparin 40 Mg/0.4 Ml Syringe) 40 mg SC BID [facility] Last Admin: 04/27/20 09:03 Dose: 40 mg Documented by: Folic Acid (Folic Acid 1 Mg Tablet) 1 mg PO DAILY [facility] Last Admin: 04/27/20 09:06 Dose: 1 mg Documented by: Gabapentin (Gabapentin 600 Mg Tablet) 600 mg PO BID [facility] Last Admin: 04/27/20 09:04 Dose: 600 mg Documented by: Guaifenesin (Guaifenesin Dm 10 Ml Udc) 10 ml PO Q6H PRN PRN PRN Reason: COUGH Hydrochlorothiazide (Hydrochlorothiazide 12.5mg) 12.5 mg PO DAILY [facility] Last Admin: 04/27/20 09:03 Dose: 12.5 mg Documented by: Remdesivir 100 mg/ Sodium (Chloride) 250 mls @ 125 mls/hr IV DAILY@2200 [facility] Stop: 04/29/20 23:59 Last Infusion: 04/26/20 23:17 Dose: Infused Documented by: Sodium Chloride () 250 mls @ 15 mls/hr IV .[id number] PRN PRN Reason: Saline Flush Last Infusion: 04/26/20 07:41 Dose: 0 mls/hr Documented by: Sodium Chloride () 250 mls @ 15 mls/hr IV .[id number] PRN PRN Reason: Additional IVPB Infusion Insulin Glargine (Insulin Glargine 100 Units/Ml Pen) 10 units SC QHS [facility] Last Admin: 04/26/20 22:59 Dose: 10 u Documented by: Insulin Human Lispro (Insulin Lispro 100 Unit/Ml Insuln.Pen) 0 unit SC ACHS [facility]; Protocol Last Admin: 04/27/20 08:59 Dose: 3 units Documented by: Insulin Human Lispro (Insulin Lispro 100 Unit/Ml Insuln.Pen) 15 unit SC TIDAC [facility] Last Admin: 04/27/20 08:59 Dose: 15 u Documented by: Insulin Human Regular (Insulin U-500 Pen) 75 units SC BIDAC [facility] Last Admin: 04/27/20 08:59 Dose: 75 units Documented by: Lisinopril (Lisinopril 20 Mg Tablet) 20 mg PO BID [facility] Last Admin: 04/27/20 09:06 Dose: 20 mg Documented by: Pyridoxine HCl (Pyridoxine Hcl 100 Mg Tablet) 100 mg PO QHS [facility] Last Admin: 04/26/20 21:19 Dose: 100 mg Documented by: Rosuvastatin Calcium (Rosuvastatin 20 Mg Tablet) 20 mg PO QHS [facility] Last Admin: 04/26/20 21:19 Dose: 20 mg Documented by: Sodium Chloride (0.9% Saline Lock 10 Ml Syringe) 10 - 40 ml IV UD PRN PRN Reason: SALINE FLUSH Last Admin: 04/26/20 06:53 Dose: 20 ml Documented by: Discharge Activity: May Not Drive - For about 2 weeks Weight Bearing Status: Weight bearing as tolerated Call your doctor if you observe: Fever of 101 or Higher, Numbness or Tingling, Change in Color, Inability to urinate, Inability to have a bowel movement, Shortness of breath, Dizziness, Fainting spells, Swelling in the ankles, Chest pain, Prolonged hiccoughing, Increased palpitations (irregular heartbeat), Calf discomfort, Uncontrolled pain Home Medications: Medications to take at Discharge Ascorbic Acid [Vitamin C] 250 mg PO BID 10/24/14 Aspirin [Aspirin, Baby] 81 mg PO DAILY 10/24/14 Cyanocobalamin [Vitamin B12] 1,000 mcg PO QHS 10/24/14 Folic Acid 1 mg PO DAILY 10/24/14 Fosinopril Sodium 20 mg PO BID 10/24/14 Pyridoxine HCl [Vitamin B-6] 100 mg PO QHS 10/24/14 Rosuvastatin Calcium [Crestor] 20 mg PO QHS 10/24/14 Vits A,C,E/Lutein/Minerals [Healthy Eyes Caplet] 1 each PO DAILY 10/24/14 Zinc 50 mg PO DAILY 10/24/14 Calcium Carbonate/Vitamin D3 [Calcium 500+D Tablet Chew] 1 ea PO BID 04/25/20 Gabapentin [Neurontin] 600 mg PO BIDCM 04/25/20 Insulin Regular, Human [Humulin R U-500 Kwikpen] 75 unit SQ BID 04/25/20 Loratadine [Claritin] 10 mg PO DAILY PRN PRN 04/25/20 Apixaban [Eliquis] 2.5 mg PO BID #30 tab 04/27/20 Dexamethasone [Decadron] 6 mg PO DAILY #7 tab 04/27/20 Hydrochlorothiazide [Hctz] 12.5 mg PO DAILY #0 04/27/20 Following Prescriptions Were Given to Patient: Dexamethasone [Decadron] 6 mg PO DAILY #7 tab Transmission Status: Received by [facility]/pharmacy #[id number] Apixaban [Eliquis] 2.5 mg PO BID #30 tab Transmission Status: Received by [facility]/pharmacy #[id number] Primary Care Physician: Sue Stephenson MD [Primary Care Provider] - Please follow up with your Primary Care Physician in: In 2 weeks with follow-up BMP in 1 week Please Follow Up With: Sebastián Cobb MD When: As needed if any question related to Covid 19 Medical Necessity - Tobacco Use Smoking Status: Former smoker Tobacco Use: Pipe Meaningful Use Info Meaningful Use Diagnoses (Choose all that apply): None applicable Inpatient E&M: [id number] [facility]
[2020-04-27 09:41] LABS: Bedside Glucose 179 mg/dL (70-110)
[2020-04-27 10:15] VITALS: O2SAT 94
== END 2020-04-27 11:20 | disposition home or self-care (01) | DRG 177 ==
LOC: ED 17:14 → MS2 20:15
PROVIDERS: Internal Medicine Infectious Disease; Admitting Provider Internal Medicine; Emergency Provider Emergency Medicine; PCP Internal Medicine; Visit Provider Internal Medicine
DX: U07.1 COVID-19 (principal); J12.89 Other viral pneumonia; R09.02 Hypoxemia; R06.89 Other abnormalities of breathing; E11.65 Type 2 diabetes mellitus with hyperglycemia; T38.0X5A Adverse effect of glucocorticoids and synthetic analogues, initial encounter; E11.40 Type 2 diabetes mellitus with diabetic neuropathy, unspecified; I10 Essential (primary) hypertension; E78.5 Hyperlipidemia, unspecified; G25.81 Restless legs syndrome; G47.33 Obstructive sleep apnea (adult) (pediatric); Y92.9 Unspecified place or not applicable; Z79.01 Long term (current) use of anticoagulants; Z79.82 Long term (current) use of aspirin; Z79.4 Long term (current) use of insulin; Z79.899 Other long term (current) drug therapy; Z87.891 Personal history of nicotine dependence
CPT/HCPCS: 36415; 71045; 71275; 80048; 80053; 80076; 82962; 84484; 85025; 85027; 85379; 93005; 99251; 99284; J7030; J7050; Q9967; A4216; G0463

== ENCOUNTER 2022-06-22 17:12 | Emergency (ER) | payer OTHER, SELFPAY ==
[2022-06-22 17:15] VITALS: BP 155/83; PULSE 100; RESP 20; TEMP 36.5; O2SAT 94; BMI 33.5
--- NOTE | 2022-06-22 17:27 | EKG12_ITS ---
Test Reason : NAUSEA/VOMITING Blood Pressure : / mmHG Vent. Rate : 095 BPM Atrial Rate : 095 BPM P-R Int : 182 ms QRS Dur : 118 ms QT Int : 358 ms P-R-T Axes : 042 -56 094 degrees QTc Int : 449 ms Normal sinus rhythm Left axis deviation Septal infarct , age undetermined Abnormal ECG Confirmed by KEN PITTMAN, ANDREEA ([id number]), editor & co founder ARMANDO VÁZQUEZ ([id number]) on 06/23/2022 10:17:03 AM Referred By: Confirmed By:ANDREEA ROGERS MD
--- NOTE | 2022-06-22 17:29 | EX.ED.DYSGE1 ---
HPI History of Present Illness Chief Complaint: Nausea/Vomiting/Diarrhea Detail of Chief Complaint: Vomiting Informant: patient Narrative Narrative: Patient presents the emergency department complaint of vomiting that started today. Patient states that he has vomited dozens of times. He denies abdominal pain. He denies fever. Patient states that he had a cough for about a week. Patient denies any diarrhea. Patient denies chest pain or shortness of breath. Patient presents via EMS because states he is a brittle diabetic. Patient apparently had a visit from a family member recently that had pneumonia. Cough mostly nonproductive. PFSH PFSH Home Medications ascorbic acid (vitamin C) 500 mg tablet (Vitamin C) 250 mg PO BID 10/24/14 [History Last Taken 10/23/14] aspirin 81 mg chewable tablet 81 mg PO DAILY 10/24/14 [History Last Taken 10/23/14] cyanocobalamin (vitamin B-12) 500 mcg tablet 1,000 mcg PO QHS 10/24/14 [History Last Taken 10/23/14] folic acid 1 mg tablet 1 mg PO DAILY 10/24/14 [History Last Taken 10/23/14] fosinopril 20 mg tablet 20 mg PO BID 10/24/14 [History Last Taken 10/23/14] pyridoxine (vitamin B6) 100 mg tablet 100 mg PO QHS 10/24/14 [History Last Taken 10/23/14] rosuvastatin 20 mg tablet (Crestor) 20 mg PO QHS 10/24/14 [History Last Taken 10/23/14] vit A 300 mcg-C 200 mg-E 27 mg-lutein 2 mg and minerals tablet (Healthy Eyes) 1 ea PO DAILY 10/24/14 [History Last Taken 10/23/14] zinc 50 mg tablet 50 mg PO DAILY 10/24/14 [History Last Taken 10/23/14] calcium carbonate 500 mg-vitamin D3 10 mcg (400 unit) chewable tablet 1 ea PO BID 04/25/20 [History Last Taken Unknown] gabapentin 600 mg tablet 600 mg PO BIDCM 04/25/20 [History Last Taken Unknown] insulin regular hum U-500 conc 500 unit/mL(3 mL) subcut pen 75 unit SQ BID 04/25/20 [History Last Taken Unknown] loratadine 10 mg capsule 10 mg PO DAILY PRN PRN Allergies 04/25/20 [History Last Taken Unknown] apixaban 2.5 mg tablet 2.5 mg PO BID #30 tabs 04/27/20 [Rx Last Taken Unknown] dexamethasone 4 mg tablet 6 mg PO DAILY #7 tabs 04/27/20 [Rx Last Taken Unknown] hydrochlorothiazide 25 mg tablet 12.5 mg PO DAILY ##0 04/27/20 [Rx Last Taken 10/23/14] ondansetron 4 mg disintegrating tablet 4 mg PO Q8H PRN PRN Nausea #10 tabs 06/22/22 [Rx Last Taken Unknown] Allergy/AdvReac Type Severity Reaction Status Date / Time acetaminophen [From Percocet] AdvReac Other Verified 04/25/20 16:06 atorvastatin calcium AdvReac Other Verified 04/25/20 16:06 [From Lipitor] oxycodone HCl [From Percocet] AdvReac Other Verified 04/25/20 16:06 simvastatin [From Zocor] AdvReac Other Verified 04/25/20 16:06 Social History Smoking Status: Former smoker ROS ROS ED Review of Systems ROS Unobtainable: other Constitutional Constitutional ED: Reports lethargy; Denies chills, fever(s), sweats or weight loss Eyes Eyes: Denies blurry vision, change in vision or diplopia ENT ENT ED: Denies rhinorrhea or sore throat Cardiovascular Cardiovascular: Denies chest pain, orthopnea or racing heartbeat Respiratory/Chest Respiratory/Chest: Denies cough, dyspnea, dyspnea on exertion, orthopnea or sputum Gastrointestinal Gastrointestinal: Reports nausea and vomiting; Denies abdominal pain or diarrhea Genitourinary Genitourinary ED: Denies dysuria, hematuria or urinary frequency Musculoskeletal Musculoskeletal: Denies arthralgias, back pain, myalgias or neck pain Integumentary Denies abscess, Abrasions or rash Neurologic Neurologic: Denies headache(s) or weakness Psychiatric Psychiatric: Denies anxiety, depression or suicidal thoughts Endocrine Endocrinology: Denies polydipsia, polyphagia or polyuria Hematologic/Lymphatic Hematologic/Lymphatic: Denies easy bleeding, easy bruising or lymphadenopathy Allergic/Immunologic Allergic/Immunologic ED: Denies mouth swelling, tongue swelling or urticaria EXAM Physical Exam Const Vital Signs: 06/22/22 17:15 06/22/22 18:58 Temperature 97.7 F L Temperature Source Temporal Pulse Rate 100 93 Respiratory Rate 20 H 22 H Blood Pressure 155/83 H 138/71 H Blood Pressure Mean 107 Pulse Ox 94 94 Oxygen Delivery Method Room Air Positive well nourished and well developed General Appearance ED: well developed and NAD HEENT Reports TM's clear and moist mucous membranes normocephalic and atraumatic; Negative for trauma or tenderness Tympanic Membrane ED: Yes TM's clear Eyes PERRL and EOMs intact bilaterally General Eye ED: Negative for pale conjunctiva or scleral icterus Neck no lymphadenopathy, supple and no JVD General: Negative for tenderness Chest Wall inspection of chest normal and palpation of chest normal Chest: Negative for tenderness Resp normal respiratory effort and clear to auscultation bilaterally Effort and Inspection: Negative for respiratory distress or pain with movement Auscultation: Negative for rhonchi, wheezes or diminished lung sounds Cardio regular rate, regular rhythm, S1 normal heart sound, S2 normal heart sound and no murmurs Peripheral Pulses: pulses 2+ throughout GI normal to inspection, nondistended, normoactive bowel sounds, soft to palpation, non-tender, non-distended and no masses Back/Spine no CVA tenderness and no thoracic nor lumbar tenderness Extremity normal to inspection General Extremety ED: Negative for edema General Extremity: Negative for edema Neuro oriented x3, CN's II-XII intact bilaterally, no sensory deficits noted and gait normal Sensorium / Orientation: awake, alert, oriented to person, oriented to place and oriented to time Motor Exam: strength 5/5 throughout and strength abnormal Psych mental status grossly normal Skin no rashes or lesions noted and no wounds MDM MDM MDM Narrative Medical decision making narrative: With vomiting and no abdominal pain. An IV line was established. Patient was given a liter normal saline fluid bolus and Zofran 4 mg IV. In the differential was viral etiology versus cardiac etiology versus acute intra-abdominal process. On exam he really has no abdominal tenderness. Basic lab work obtained showed a normal white count of 9.7. Chemistries were unremarkable. Glucose was elevated 170. BUN was 32 and creatinine 1.34. Lactate was normal 1.8. 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 Troponin was normal. At this point I suspect likely viral etiology for his symptoms. Patient had no further vomiting in the department. He was able to tolerate p.o. fluids. He is feeling well enough to go home and he and his are comfortable going home. I did will prescribe him Zofran. Advised to follow-up with primary care physician within next 3 to 5 days. Advised to return if persistent vomiting, abdominal pain, chest pain, or condition should worsen anyway Lab Data Attestation: I reviewed the patient's lab results. Labs: Laboratory Results - last 24 hr 06/22/22 06/22/22 06/22/22 17:39 17:41 17:41 WBC 9.7 RBC 4.80 Hgb 14.3 Hct 43.6 MCV 90.8 MCH 29.8 MCHC 32.8 RDW Std Deviation 47.4 H RDW Coeff of Katharine 14.1 Plt Count 238 MPV 8.0 Immature Gran % (Auto) 0.300 Neut % (Auto) 90.8 H Lymph % (Auto) 3.2 L [place] % (Auto) 5.3 Eos % (Auto) 0.2 Baso % (Auto) 0.2 Absolute Neuts (auto) 8.8 H Absolute Lymphs (auto) 0.31 L Nucleated RBC % 0 Differential Comment SCANNED Sodium 137 Potassium 4.1 Chloride 104 Carbon Dioxide 22.0 Anion Gap 11 BUN 32 H Creatinine 1.34 H Estim Creat Clear Calc 53.68 Est GFR (MDRD) Af Amer 66 Est GFR (MDRD) Non-Af 55 L BUN/Creatinine Ratio 23.9 H Glucose 170 H Lactic Acid Calcium 9.1 Troponin I High Sens 10 POC Glucose 154 H 06/22/22 17:41 WBC RBC Hgb Hct MCV MCH MCHC RDW Std Deviation RDW Coeff of Katharine Plt Count MPV Immature Gran % (Auto) Neut % (Auto) Lymph % (Auto) [place] % (Auto) Eos % (Auto) Baso % (Auto) Absolute Neuts (auto) Absolute Lymphs (auto) Nucleated RBC % Differential Comment Sodium Potassium Chloride Carbon Dioxide Anion Gap BUN Creatinine Estim Creat Clear Calc Est GFR (MDRD) Af Amer Est GFR (MDRD) Non-Af BUN/Creatinine Ratio Glucose Lactic Acid 1.8 Calcium Troponin I High Sens POC Glucose Radiography Chest X-Ray - ED: 1 View Diagnostic Testing: Clinical Impression(s) from Imaging Studies Chest X-Ray 06/22/22 17:52 IMPRESSION: Slight increase in interstitial markings may represent edema and/or infection. Electronically Signed: Roni Hemphill MD at 19:08 EST , 1 view chest x-ray obtained interpreted by myself as no acute disease process. There is no evidence of acute infiltrate or pneumothorax. Reviewed radiology interpretation and they there may be increased interstitial markings which may represent edema versus infection. Clinically I do not feel he has pneumonia. Patient states his cough is actually gotten better and its been nonproductive. He has not really had much in the way of fever and he is not dyspneic. 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 with old septal infarct noted Prior EKG tracings: available for review Prior: Changed Discharge Plan Triage Chief Complaint: Nausea/Vomiting/Diarrhea ED Provider: Rayo Lennon Dx/Rx/DC Orders Clinical Impression: Vomiting Instructions: ED Viral Syndrome (Adult), ED Vomiting (Adult) Prescriptions: New ondansetron [ondansetron] 4 mg tablet,disintegrating 4 mg PO Q8H PRN PRN (Reason: Nausea) Qty: 10 0RF No Action cyanocobalamin (vitamin B-12) 500 MCG tablet 1,000 mcg PO QHS Label Comments: suppliment ascorbic acid (vitamin C) [Vitamin C] 500 MG tablet 250 mg PO BID Label Comments: suppliment aspirin 81 MG tablet,chewable 81 mg PO DAILY Label Comments: HEART HEALTH folic acid 1 MG tablet 1 mg PO DAILY Label Comments: suppliment pyridoxine (vitamin B6) 100 MG tablet 100 mg PO QHS Label Comments: SUPPLIMENT fosinopril 20 MG tablet 20 mg PO BID Label Comments: BLOOD PRESSURE zinc 50 MG tablet 50 mg PO DAILY Label Comments: SUPPLIMENT rosuvastatin [Crestor] 20 MG tablet 20 mg PO QHS Label Comments: CHOLESTEROL LOWERING vit A,C and [id number] [Healthy Eyes] 1 EACH tablet 1 ea PO DAILY Label Comments: SUPPLIMENT gabapentin 600 MG tablet 600 mg PO BIDCM calcium carbonate-vitamin D3 1 EACH tablet,chewable 1 ea PO BID loratadine 10 MG capsule 10 mg PO DAILY PRN PRN (Reason: Allergies) insulin regular hum U-500 conc 500 UNIT/ML insulin pen 75 unit SQ BID dexamethasone 4 MG tablet 6 mg PO DAILY Qty: 7 0RF apixaban 2.5 MG tablet 2.5 mg PO BID Qty: 30 0RF hydrochlorothiazide 25 MG tablet 12.5 mg PO DAILY Qty: 0 0RF Label Comments: BLOOD PRESSURE Rx Instructions: Hold for 5 days. Primary Care Provider: [facility] Referrals: Sue Stephenson MD [Med Staff - Psychiatric Therapist] - 3-5 Days Disposition Disposition: Home, Self Care
[2022-06-22] MEDS: 0.9% Normal Saline 1,000 ML 1000 ML IV (17:46)
[2022-06-22] MEDS: Ondansetron 4 MG/2 ML Vial IV (17:47)
--- NOTE | 2022-06-22 17:52 | RAD_ITS ---
INDICATION: cough EXAMINATION/TECHNIQUE: X-RAY - XR Chest 1 View COMPARISON: 04/25/2020. FINDINGS: Slight increase in interstitial markings. Tortuous and calcified thoracic aorta. The heart is moderately enlarged. No pleural effusion or pneumothorax. Degenerative changes of the thoracic spine. RAD/Chest 1 View (Portable) IMPRESSION: Slight increase in interstitial markings may represent edema and/or infection. Electronically Signed: Roni Hemphill MD at 19:08 EST ,
[2022-06-22 17:56] LABS: Absolute Lymphocyte Count 0.31 X10^3/uL (0.83-4.51); Absolute Neutrophil Count 8.8 X10^3/uL (2.0-7.7); Basophil# 0.02 X10^3/uL; Basophil% 0.2 % (0-1); Eosinophil# 0.02 X10^3/uL; Eosinophils% 0.2 % (0-5); Hematocrit 43.6 % (40-54); Hemoglobin 14.3 g/dL (13.0-16.5); Lymphocyte # 0.31 X10^3/ul (0.83-4.51); Lymphocyte % 3.2 % (19-41); Mean Corp Hgb Conc 32.8 g/dL (32-36); Mean Corpuscular Hgb 29.8 pg (27.0-32.0); Mean Corpuscular Volume 90.8 fL (80-94); Monocyte# 0.51 X10^3/uL; Monocyte% 5.3 % (0-10); NRBC Flagged by Analyzer 0 % (0-5); Neutrophil # 8.77 X10^3/uL (2.7-7.7); Neutrophil % 90.8 % (47-70); POSITIVE DIFFERENTIAL YES; Platelet Count 238 K/mm3 (150-450); RBC Distribution Width CV 14.1 % (11.6-14.6); RBC Distribution Width SD 47.4 fl (35.1-43.9); White Blood Count 9.7 K/mm3 (4.4-11.0)
[2022-06-22 17:58] LABS: Differential Indicated SCAN CRITERIA MET
[2022-06-22 18:01] LABS: Bedside Glucose 154 mg/dL (74-106)
[2022-06-22 18:16] LABS: Anion Gap 11 (5-15); BUN 32 mg/dL (7-18); BUN/Creat Ratio 23.9 RATIO (10-20); Calcium,Total 9.1 mg/dL (8.5-10.1); Chloride 104 mmol/L (98-107); Creatinine, Serum 1.34 mg/dL (0.70-1.30); EST Glomerular Filtration Rate 55 mL/min (>60); Est Glom Filt Rate - Afr Amer 66 mL/min (>60); Estimated Creatinine Clearance 53.68 ml/min; Glucose 170 mg/dL (74-106); Potassium 4.1 mmol/L (3.5-5.1); Sodium Level 137 mmol/L (136-145); Troponin-I HS 10 pg/mL (3.0-78.0)
[2022-06-22 18:21] LABS: Lactic Acid 1.8 mmol/L (0.4-1.9)
[2022-06-22 18:40] LABS: Differential Comment SCANNED
[2022-06-22] MEDS: 0.9% Normal Saline 1,000 ML 150 ML IV (18:53)
[2022-06-22 18:58] VITALS: BP 138/71; PULSE 93; RESP 22; O2SAT 94
[2022-06-22 19:16] VITALS: BP 130/80; BP 143/63; PULSE 94; PULSE 95; RESP 19; RESP 20; O2SAT 94
== END 2022-06-22 19:33 | disposition home or self-care (01) ==
PROVIDERS: Emergency Provider Emergency Medicine; Visit Provider Emergency Medicine
DX: R11.2 Nausea with vomiting, unspecified (principal); E11.65 Type 2 diabetes mellitus with hyperglycemia; Z79.4 Long term (current) use of insulin; R19.7 Diarrhea, unspecified; Z79.01 Long term (current) use of anticoagulants; Z79.82 Long term (current) use of aspirin; Z79.899 Other long term (current) drug therapy; Z87.891 Personal history of nicotine dependence
CPT/HCPCS: 71045; 80048; 82962; 83605; 84484; 85025; 87040; 87428; 93005; 96361; 96374; 99285; J7030; A4216; J2405

== ENCOUNTER 2023-10-01 16:49 | Emergency (ER) | payer OTHER, SELFPAY ==
[2023-10-01 16:50] VITALS: BP 164/89; PULSE 78; RESP 16; TEMP 35.9; O2SAT 97; BMI 33.7
--- NOTE | 2023-10-01 17:26 | ED.VIS.GI ---
HPI <REGINA Oreilly - Last Filed: 10/01/23 19:19> HPI - GI History of Present Illness Chief Complaint: GI Bleed Narrative Narrative: Patient presenting today with concerns for bright red blood that he noticed from his rectum this afternoon. He reports that he has been a little constipated today and has been straining while trying to have a bowel movement, when he wiped he noticed bright red blood that saturated the toilet paper. He then tried to have another bowel movement this afternoon and was again straining, he noticed blood on the toilet paper again prompting him to come in for evaluation. He denies any history of GI bleed. His last colonoscopy was in 2004 and was told that he did not have to come back for another. He denies any fevers, chills, abdominal pain, nausea, or vomiting. He denies any history of hemorrhoids. He reports that he takes a daily aspirin but denies any other blood thinner use. PFS <REGINA Oreilly - Last Filed: 10/01/23 19:19> [facility] Home Medications ?Medication ?Instructions ?Recorded ?Last Taken ?Type ascorbic acid (vitamin C) 500 mg 250 mg PO BID 10/24/14 10/23/14 History tablet (Vitamin C) aspirin 81 mg chewable tablet 81 mg PO DAILY 10/24/14 10/23/14 History cyanocobalamin (vitamin B-12) 500 1,000 mcg PO QHS 10/24/14 10/23/14 History mcg tablet folic acid 1 mg tablet 1 mg PO DAILY 10/24/14 10/23/14 History fosinopril 20 mg tablet 20 mg PO BID 10/24/14 10/23/14 History pyridoxine (vitamin B6) 100 mg 100 mg PO QHS 10/24/14 10/23/14 History tablet rosuvastatin 20 mg tablet (Crestor) 20 mg PO QHS 10/24/14 10/23/14 History vit A 300 mcg-C 200 mg-E 27 1 ea PO DAILY 10/24/14 10/23/14 History mg-lutein 2 mg and minerals tablet (Healthy Eyes) zinc 50 mg tablet 50 mg PO DAILY 10/24/14 10/23/14 History calcium carbonate 500 mg-vitamin 1 ea PO BID 04/25/20 Unknown History D3 10 mcg (400 unit) chewable tablet gabapentin 600 mg tablet 600 mg PO BIDCM 04/25/20 Unknown History insulin regular hum U-500 conc 500 75 unit SQ BID 04/25/20 Unknown History unit/mL(3 mL) subcut pen loratadine 10 mg capsule 10 mg PO DAILY PRN PRN Allergies 04/25/20 Unknown History apixaban 2.5 mg tablet 2.5 mg PO BID #30 tabs 04/27/20 Unknown Rx dexamethasone 4 mg tablet 6 mg (1.5 x 4 mg) PO DAILY #7 tabs 04/27/20 Unknown Rx hydrochlorothiazide 25 mg tablet 12.5 mg (1/2 x 25 mg) PO DAILY ##0 04/27/20 10/23/14 Rx ondansetron 4 mg disintegrating 4 mg PO Q8H PRN PRN Nausea #10 tabs 06/22/22 Unknown Rx tablet Allergy/AdvReac Type Severity Reaction Status Date / Time acetaminophen (From Percocet) AdvReac Other Verified 10/01/23 16:53 atorvastatin calcium (From AdvReac Other Verified 10/01/23 16:53 Lipitor) oxycodone HCl (From Percocet) AdvReac Other Verified 10/01/23 16:53 simvastatin (From Zocor) AdvReac Other Verified 10/01/23 16:53 Social History Smoking Status: Former smoker ROS <REGINA Oreilly - Last Filed: 10/01/23 19:19> ROS ED Constitutional Constitutional ED: Denies chills or fever(s) Cardiovascular Cardiovascular: Denies chest pain Respiratory/Chest Respiratory/Chest: Denies cough or dyspnea Gastrointestinal Gastrointestinal: Reports constipation and hematochezia; Denies abdominal pain, diarrhea, melena, nausea or vomiting Genitourinary Genitourinary ED: Denies dysuria, hematuria or urinary urgency Musculoskeletal Musculoskeletal: Denies arthralgias or myalgias Integumentary Denies rash Neurologic Neurologic: Denies weakness EXAM <REGINA Oreilly - Last Filed: 10/01/23 19:19> Physical Exam Const Vital Signs: 10/01/23 16:50 10/01/23 18:49 10/01/23 19:04 Temperature 96.7 F L 97.7 F L Temperature Source Temporal Pulse Rate 78 74 74 Respiratory Rate 16 18 18 Blood Pressure 164/89 H 146/82 H 146/82 H Blood Pressure Mean 114 103 103 Pulse Ox 97 99 99 Oxygen Delivery Method Room Air Room Air Positive well nourished, well developed and no apparent distress General Appearance ED: well developed HEENT Reports normocephalic and head/scalp atraumatic Mouth ED: Yes moist mucous membranes normal Eyes PERRL and EOMs intact bilaterally Neck full ROM and supple Chest Wall inspection of chest normal Resp normal respiratory effort and clear to auscultation bilaterally Cardio regular rate and regular rhythm GI soft to palpation, non-tender, non-distended and no masses GI Narrative: Rectal examination: Small external nonthrombosed hemorrhoid, normal sphincter tone, BEA without any bright red blood or black stool, brown stool is noted Back/Spine normal ROM and normal to inspection Extremity normal to inspection and full ROM Neuro oriented x3, CN's II-XII intact bilaterally, moves all extremities, no focal motor deficits and no sensory deficits noted Sensorium / Orientation: awake and alert Psych mental status grossly normal and thought process normal Skin no rashes or lesions noted and no wounds <Dr. Teofilo Lehman DO - Last Filed: 10/08/23 10:56> Physical Exam Const Vital Signs: 10/01/23 16:50 10/01/23 18:49 10/01/23 19:04 Temperature 96.7 F L 97.7 F L Temperature Source Temporal Pulse Rate 78 74 74 Respiratory Rate 16 18 18 Blood Pressure 164/89 H 146/82 H 146/82 H Blood Pressure Mean 114 103 103 Pulse Ox 97 99 99 Oxygen Delivery Method Room Air Room Air [facility] <REGINA Oreilly - Last Filed: 10/01/23 19:19> [facility] Narrative Medical decision making narrative: Patient presenting due to bright red blood that he noticed when wiping his rectum after straining while having a bowel movement this afternoon. He passed a few small stools this afternoon and noticed the blood after. I did perform a rectal examination, on BEA no blood was noticed, brown stool, he does have a small nonthrombosed external hemorrhoid. I do suspect that the blood is likely from a hemorrhoid due to his straining. He is not having any abdominal pain or tenderness. CBC and BMP were obtained, H&H 14.3 and 43.5, BUN is 23 which is improved from previous labs. His chart reports that he is taking Eliquis but he denies taking this medication and states he is only on aspirin. I do feel that patient is stable for outpatient workup, I have encouraged that he follow-up with his PCP. Return instructions were discussed and patient is discharged home in stable condition. Lab Data Attestation: I reviewed the patient's lab results. Labs: Laboratory Results - last 24 hr 10/01/23 10/01/23 17:37 17:56 WBC 7.9 RBC 4.59 L Hgb 14.3 Hct 43.5 MCV 94.8 H MCH 31.2 MCHC 32.9 RDW Std Deviation 47.9 H RDW Coeff of Katharine 13.7 Plt Count 225 MPV 8.5 Immature Gran % (Auto) 0.400 Neut % (Auto) 64.0 Lymph % (Auto) 23.6 [place] % (Auto) 8.4 Eos % (Auto) 3.1 Baso % (Auto) 0.5 Absolute Neuts (auto) 5.1 Absolute Lymphs (auto) 1.87 Nucleated RBC % 0 Sodium 141 Potassium 3.9 Chloride 109 H Carbon Dioxide 25.0 Anion Gap 7 BUN 23 H Creatinine 1.24 Estim Creat Clear Calc 67.39 Est GFR (MDRD) Af Amer 72 Est GFR (MDRD) Non-Af 60 BUN/Creatinine Ratio 18.5 Glucose 104 Calcium 9.3 POC Glucose 113 H <Dr. Teofilo Lehman, DO - Last Filed: 10/08/23 10:56> [facility] MDM Narrative Medical decision making narrative: Patient presenting due to bright red blood that he noticed when wiping his rectum after straining while having a bowel movement this afternoon. He passed a few small stools this afternoon and noticed the blood after. I did perform a rectal examination, on BEA no blood was noticed, brown stool, he does have a small nonthrombosed external hemorrhoid. I do suspect that the blood is likely from a hemorrhoid due to his straining. He is not having any abdominal pain or tenderness. CBC and BMP were obtained, H&H 14.3 and 43.5, BUN is 23 which is improved from previous labs. His chart reports that he is taking Eliquis but he denies taking this medication and states he is only on aspirin. I do feel that patient is stable for outpatient workup, I have encouraged that he follow-up with his PCP. Return instructions were discussed and patient is discharged home in stable condition. This patient was seen with a PA/POPULATION GENETICIST Individually assessed they patient including history and physical. I have reviewed everything on the chart that is available and agree with the documentation provided by the PA/POPULATION GENETICIST including discussion about the assessment, treatment plan, discussion, and return precautions. Well-appearing 70-year-old male concern for blood on his paper when he wipes. Vital signs are stable he is afebrile. He is not on any blood thinners. We did screening labs today which are unremarkable. The patient is stable for discharge home and return precautions were discussed. Lab Data Labs: Laboratory Results - last 24 hr 10/01/23 10/01/23 17:37 17:56 WBC 7.9 RBC 4.59 L Hgb 14.3 Hct 43.5 MCV 94.8 H MCH 31.2 MCHC 32.9 RDW Std Deviation 47.9 H RDW Coeff of Katharine 13.7 Plt Count 225 MPV 8.5 Immature Gran % (Auto) 0.400 Neut % (Auto) 64.0 Lymph % (Auto) 23.6 [place] % (Auto) 8.4 Eos % (Auto) 3.1 Baso % (Auto) 0.5 Absolute Neuts (auto) 5.1 Absolute Lymphs (auto) 1.87 Nucleated RBC % 0 Sodium 141 Potassium 3.9 Chloride 109 H Carbon Dioxide 25.0 Anion Gap 7 BUN 23 H Creatinine 1.24 Estim Creat Clear Calc 67.39 Est GFR (MDRD) Af Amer 72 Est GFR (MDRD) Non-Af 60 BUN/Creatinine Ratio 18.5 Glucose 104 Calcium 9.3 POC Glucose 113 H Discharge Plan Triage Chief Complaint: GI Bleed ED Midlevel Provider: Margaret Monteiro ED Provider: Teofilo Lehman Dx/Rx/DC Orders Clinical Impression: Hematochezia Instructions: ED Lower GI Bleeding (Stable) Prescriptions: No Action cyanocobalamin (vitamin B-12) 500 MCG tablet 1,000 mcg PO QHS Patient Comments: suppliment ascorbic acid (vitamin C) [Vitamin C] 500 MG tablet 250 mg PO BID Patient Comments: suppliment aspirin 81 MG tablet,chewable 81 mg PO DAILY Patient Comments: HEART HEALTH folic acid 1 MG tablet 1 mg PO DAILY Patient Comments: suppliment pyridoxine (vitamin B6) 100 MG tablet 100 mg PO QHS Patient Comments: SUPPLIMENT fosinopril 20 MG tablet 20 mg PO BID Patient Comments: BLOOD PRESSURE zinc 50 MG tablet 50 mg PO DAILY Patient Comments: SUPPLIMENT rosuvastatin [Crestor] 20 MG tablet 20 mg PO QHS Patient Comments: CHOLESTEROL LOWERING vit A,C and [id number] [Healthy Eyes] 1 EACH tablet 1 ea PO DAILY Patient Comments: SUPPLIMENT gabapentin 600 MG tablet 600 mg PO BIDCM calcium carbonate-vitamin D3 1 EACH tablet,chewable 1 ea PO BID loratadine 10 MG capsule 10 mg PO DAILY PRN PRN (Reason: Allergies) insulin regular hum U-500 conc 500 UNIT/ML insulin pen 75 unit SQ BID dexamethasone 4 MG tablet 6 mg PO DAILY Qty: 7 0RF apixaban 2.5 MG tablet 2.5 mg PO BID Qty: 30 0RF hydrochlorothiazide 25 MG tablet 12.5 mg PO DAILY Qty: 0 0RF Patient Comments: BLOOD PRESSURE Rx Instructions: Hold for 5 days. ondansetron [ondansetron] 4 mg tablet,disintegrating 4 mg PO Q8H PRN PRN (Reason: Nausea) Qty: 10 0RF [facility] [Primary Care Provider] - Activity Restrictions/Additional Instructions: Please follow-up with your PCP in the next 5 to 7 days and return for any worsening of your symptoms. Print Language: Somali Disposition Disposition: Home, Self Care Discharge Date/Time: 10/01/23 19:05
[2023-10-01 17:55] LABS: Bedside Glucose 113 mg/dL (74-106)
[2023-10-01 18:18] LABS: Absolute Lymphocyte Count 1.87 X10^3/uL (0.83-4.51); Absolute Neutrophil Count 5.1 X10^3/uL (2.0-7.7); Basophil# 0.04 X10^3/uL; Basophil% 0.5 % (0-1); Eosinophil# 0.25 X10^3/uL; Eosinophils% 3.1 % (0-5); Hematocrit 43.5 % (40-54); Hemoglobin 14.3 g/dL (13.0-16.5); Lymphocyte # 1.87 X10^3/ul (0.83-4.51); Lymphocyte % 23.6 % (19-41); Mean Corp Hgb Conc 32.9 g/dL (32-36); Mean Corpuscular Hgb 31.2 pg (27.0-32.0); Mean Corpuscular Volume 94.8 fL (80-94); Mean Platelet Vol. 8.5 fl (6.2-12.0); Monocyte# 0.67 X10^3/uL; Monocyte% 8.4 % (0-10); NRBC Flagged by Analyzer 0 % (0-5); Neutrophil # 5.08 X10^3/uL (2.7-7.7); Platelet Count 225 K/mm3 (150-450); RBC Distribution Width CV 13.7 % (11.6-14.6); RBC Distribution Width SD 47.9 fl (35.1-43.9); Red Blood Count 4.59 M/mm3 (4.6-6.2); White Blood Count 7.9 K/mm3 (4.4-11.0)
[2023-10-01 18:42] LABS: Anion Gap 7 (5-15); BUN 23 mg/dL (7-18); BUN/Creat Ratio 18.5 RATIO (10-20); Calcium,Total 9.3 mg/dL (8.5-10.1); Chloride 109 mmol/L (98-107); Creatinine, Serum 1.24 mg/dL (0.70-1.30); EST Glomerular Filtration Rate 60 mL/min (>60); Est Glom Filt Rate - Afr Amer 72 mL/min (>60); Estimated Creatinine Clearance 67.39 ml/min; Glucose 104 mg/dL (74-106); Potassium 3.9 mmol/L (3.5-5.1); Sodium Level 141 mmol/L (136-145)
[2023-10-01 18:49] VITALS: BP 146/82; PULSE 74; RESP 18; O2SAT 99
[2023-10-01 19:04] VITALS: BP 146/82; PULSE 74; RESP 18; TEMP 36.5; O2SAT 99
== END 2023-10-01 19:05 | disposition home or self-care (01) ==
PROVIDERS: Physician Assistant; Emergency Provider Student in an Organized Health Care Education/Training Program; Visit Provider Student in an Organized Health Care Education/Training Program
DX: K64.4 Residual hemorrhoidal skin tags (principal); Z79.4 Long term (current) use of insulin; K59.00 Constipation, unspecified; Z79.82 Long term (current) use of aspirin; Z79.01 Long term (current) use of anticoagulants; Z79.899 Other long term (current) drug therapy; Z87.891 Personal history of nicotine dependence
CPT/HCPCS: 80048; 82962; 85025; 99282